=== PATIENT | female | born 1955 | race African-American/Black ===

== ENCOUNTER 2017-08-14 17:37 | Inpatient (IN) | payer OTHER ==
[~2017-08-14] VITALS: Ht 165.1 cm; Wt 105.8 kg
[~2017-08-14 17:37] MED LIST: ATEN1TAB74 PO; CALA120T PO; IBUP-232 PO; LEVA250T14 PO; OXYC-360 PO; PRIN20TA2 PO; STOO100C PO; SULF1TAB47 PO
[2017-08-14 17:40] VITALS: BP 143/75; PULSE 80; RESP 15; TEMP 98.3; O2SAT 96
--- NOTE | 2017-08-14 17:57 | PD ---
HPI Chief Complaint: Chest Pain Time Seen by Provider: 17:48 Travel History International Travel<30 days: No Contact w/Intl Traveler<30days: No Traveled to known affect area: No History of Present Illness HPI 62-year-old female with history of hypertension, borderline diabetes, presents to the ER today brought in by EMS for substernal chest pains which she states was a 9 out of 10, nausea, shortness of breath, radiating to her head. She was given aspirin and nitroglycerin by EMS and her chest pains has just about gone away. She denies any previous history of chest pains. Modifying Factors: None Associated Signs & Symptoms: Chest pain Risk Factors: Hypertension and diabetes PFSH Past Medical History Blood Disorders: No Cancer: No Endocrine: No Genitourinary: No Hypertension: Yes Immune Disorder: No Musculoskeletal: No Neurologic: No Psychiatric: No Reproductive: No Respiratory: No Past Surgical History Neurologic Surgery: Yes (CYST REMOVAL LOWER BACK) Other Surgery: Yes (CYST REMOVED FROM BACK) Social History Alcohol Use: No Tobacco Use: Yes (1 PACK PER WEEK) Substance Use: No Allergies-Medications (Allergen,Severity, Reaction): Coded Allergies: hydromorphone (Unverified Allergy, Severe, Itching, 08/14/17) penicillin G (Unverified Allergy, Severe, 08/14/17) Reported Meds & Prescriptions Reported Meds & Active Scripts Active Reported Valsartan 320 Mg Tab 320 Mg PO DAILY Hydrochlorothiazide 25 Mg Tab 25 Mg PO DAILY Review of Systems Except as stated in HPI: all other systems reviewed are Neg Physical Exam Narrative GENERAL: Well-developed elderly -C[place] female patient currently in mild distress. Awake and oriented 3. SKIN: Focused skin assessment warm/dry. HEAD: Atraumatic. Normocephalic. EYES: Pupils equal and round. No scleral icterus. No injection or drainage. ENT: No nasal bleeding or discharge. Mucous membranes pink and moist. NECK: Trachea midline. No JVD. CARDIOVASCULAR: Regular rate and rhythm. No murmur appreciated. Pulses are present and equal bilaterally. RESPIRATORY: No accessory muscle use. Clear to auscultation. Breath sounds equal bilaterally. GASTROINTESTINAL: Abdomen soft, non-tender, nondistended. Hepatic and splenic margins not palpable. MUSCULOSKELETAL: No obvious deformities. No clubbing. No cyanosis. No edema. NEUROLOGICAL: Awake and alert. No obvious cranial nerve deficits. Motor grossly within normal limits. Normal speech. PSYCHIATRIC: Appropriate mood and affect; insight and judgment normal. Data Data Last Documented VS Vital Signs Date Time Temp Pulse Resp B/P (MAP) Pulse Ox O2 Delivery O2 Flow Rate FiO2 08/14/17 18:51 143/75 (97) 08/14/17 18:51 99 Room Air 08/14/17 17:40 98.3 80 15 Orders Orders Electrocardiogram (08/14/17 17:48) Ckmb (Isoenzyme) Profile (08/14/17 17:48) Complete Blood Count With Diff (08/14/17:48) Comprehensive Metabolic Panel (08/14/17:48) Magnesium (Mg) (08/14/17:48) Prothrombin Time / Inr (Pt) (08/14/17:48) Act Partial Throm Time (Ptt) (08/14/17:48) Troponin I (08/14/17 17:48) Chest, Single Ap (08/14/17:48) Ecg Monitoring (08/14/17:48) Bilateral Bp Monitoring (08/14/17 17:48) Iv Access Insert/Monitor (08/14/17 17:48) Oximetry (08/14/17:48) Oxygen Administration (08/14/17:48) Nitroglycerin 2% Oint (Nitroglycerin 2% (08/14/17 18:00) Sodium Chloride 0.9% Flush (Ns Flush) (08/14/17 18:00) Labs Laboratory Tests Test 08/14/17 18:00 08/14/17 18:45 White Blood Count 11.2 TH/MM3 Red Blood Count 5.96 MIL/MM3 Hemoglobin 15.2 GM/DL Hematocrit 47.0 % Mean Corpuscular Volume 78.8 FL Mean Corpuscular Hemoglobin 25.5 PG Mean Corpuscular Hemoglobin Concent 32.4 % Red Cell Distribution Width 16.3 % Platelet Count 321 TH/MM3 Mean Platelet Volume 9.9 FL Neutrophils (%) (Auto) 66.8 % Lymphocytes (%) (Auto) 22.3 % Monocytes (%) (Auto) 6.8 % Eosinophils (%) (Auto) 2.9 % Basophils (%) (Auto) 1.2 % Neutrophils # (Auto) 7.5 TH/MM3 Lymphocytes # (Auto) 2.5 TH/MM3 Monocytes # (Auto) 0.8 TH/MM3 Eosinophils # (Auto) 0.3 TH/MM3 Basophils # (Auto) 0.1 TH/MM3 CBC Comment DIFF FINAL Differential Comment [facility] Medical Decision Making Medical Screen Exam Complete: Yes Emergency Medical Condition: Yes Medical Record Reviewed: Yes Interpretation(s) EKG shows nonspecific ST elevation in the inferior leads with T wave depressions in 1 and aVL. Laboratory Tests Test 08/14/17 18:00 08/14/17 18:45 White Blood Count 11.2 TH/MM3 (4.0-11.0) Red Blood Count 5.96 MIL/MM3 (4.00-5.30) Hematocrit 47.0 % (35.0-46.0) Mean Corpuscular Volume 78.8 FL (80.0-100.0) Mean Corpuscular Hemoglobin 25.5 PG (27.0-34.0) Differential Diagnosis Chest pains: ACS versus dysrhythmias versus COPD exacerbation versus pneumonia Narrative Course Chest pain resolved in the ER. She has nonspecific ST changes notable in inferior leads as well as some ST depressions which do not make STEMI criteria. However, she will need further cardiac evaluation with plans for admission. Cardiac workup was initiated in the ER. Physician Communication Physician Communication Case is signed out to Dr. Ayala at 7 PM awaiting workup and admission. Diagnosis Primary Impression: Chest pain Admitting Information Admitting Physician Requests: Admit Vishal Benson MD Aug 14, 2017 17:57
[2017-08-14] MEDS ORDERED: SODIUM CHLORIDE 0.9% FLUSH 10 ML FLUSH IVF PRN (18:00)
[2017-08-14] MEDS ORDERED: NITROGLYCERIN 2% OINT 1 GM PACKET TOP ONE (18:00)
[2017-08-14 18:15] LABS: AUTOMATED NEUTROPHIL # 7.5 TH/MM3 (1.8-7.7); BASOPHIL # 0.1 TH/MM3 (0-0.2); BASOPHIL % 1.2 % (0.0-2.0); EOSINOPHIL # 0.3 TH/MM3 (0-0.4); EOSINOPHIL % 2.9 % (0.0-4.0); HEMO FLAGS DIFF FINAL; LYMPH % 22.3 % (9.0-44.0); LYMPHOCYTE # 2.5 TH/MM3 (1.0-4.8); MEAN CELL VOLUME 78.8 FL (80.0-100.0); MEAN CORPUSCULAR HEMOGLOBIN 25.5 PG (27.0-34.0); MEAN CORPUSCULAR HGB CONC 32.4 % (32.0-36.0); MONO % 6.8 % (0.0-8.0); NEUT % 66.8 % (16.0-70.0); PLATELET COUNT 321 TH/MM3 (150-450); RED BLOOD COUNT 5.96 MIL/MM3 (4.00-5.30); RED CELL DISTRIBUTION WIDTH 16.3 % (11.6-17.2); WHITE BLOOD COUNT 11.2 TH/MM3 (4.0-11.0)
--- NOTE | 2017-08-14 18:18 | RADRPT ---
EXAM DATE/TIME: 08/14/2017 17:58 [facility] COMPARISON: No previous studies available for comparison. INDICATIONS : Chest pain. MEDICAL HISTORY : None. SURGICAL HISTORY : None. ENCOUNTER: Initial ACUITY: 1 day PAIN SCORE: 7/10 LOCATION: Bilateral chest FINDINGS: A single view of the chest demonstrates the lungs to be symmetrically aerated without evidence of mas s, infiltrate or effusion. The heart size is enlarged. There is a right central line in place. No pn eumothorax.. Osseous structures are intact. CONCLUSION: 1. No acute intrathoracic disease. 2. Compensated cardiomegaly. Israel Arshad MD on August 14, 2017 at 18:17 Board Certified Radiologist. This report was verified electronically.
[2017-08-14 18:50] VITALS: BP 142/80
[2017-08-14 18:51] VITALS: BP 143/75; O2SAT 99
[2017-08-14] MEDS ORDERED: VALS1TAB70 PO (18:53)
[2017-08-14] MEDS ORDERED: HYDR25TA5 PO (18:53)
[2017-08-14] MEDS ORDERED: HEPARIN SODIUM - IV 10,000 UNITS/10 ML VIAL IV PUSH ONE (19:30)
[2017-08-14] MEDS ORDERED: HEPARIN-D5W 25,000 U/250 ML 250 ML IV PRN (19:30)
[2017-08-14] MEDS ORDERED: MORPHINE SULFATE 2 MG/ML INJ IV PUSH ONE (19:45)
--- NOTE | 2017-08-14 19:48 | PD ---
Physical Exam Narrative Received sign out from previous team to follow up labs and admit. 62yo F with HTN and borderline DM presents to the ED with c/o chest pain since 3pm today. States it is intermittent and pressure like. Chest pain radiates to jaw and head. Pt did have findings on EKG that was suspicious for ischemia and previous team discussed with Dr. Heredia who recommended starting heparin and NPO after midnight. When I evaluated the patient, she said she was having chest pain so I reordered an EKG. Second EKG unchanged from first. Morphine 2mg IV ordered. She said she has not had morphine before and wants to try it. Chest pain improved after morphine. No adverse reaction. BP is elevated but pt is due for her HTN medications now so will give her her usual meds and recheck. Labs reviewed, glucose elevated at 235. Normal CO2. No increased anion gap. Troponin negative. Discussed with Dr. Hernandez and accepted to Dr. Zelaya's service under [facility]. Data Data Last Documented VS Vital Signs Date Time Temp Pulse Resp B/P (MAP) Pulse Ox O2 Delivery O2 Flow Rate FiO2 08/14/17 18:51 143/75 (97) 08/14/17 18:51 99 Room Air 08/14/17 17:40 98.3 80 15 Orders Orders Electrocardiogram (08/14/17 17:48) Ckmb (Isoenzyme) Profile (08/14/17 17:48) Complete Blood Count With Diff (08/14/17 17:48) Comprehensive Metabolic Panel (08/14/17 17:48) Magnesium (Mg) (08/14/17 17:48) Troponin I (08/14/17 17:48) Chest, Single Ap (08/14/17 17:48) Ecg Monitoring (08/14/17 17:48) Bilateral Bp Monitoring (08/14/17 17:48) Iv Access Insert/Monitor (08/14/17 17:48) Oximetry (08/14/17 17:48) Oxygen Administration (08/14/17 17:48) Nitroglycerin 2% Oint (Nitroglycerin 2% (08/14/17 18:00) Sodium Chloride 0.9% Flush (Ns Flush) (08/14/17 18:00) Resp Oxygen Nasal Cannula (08/14/17 ) Ckmb (Isoenzyme) Profile (08/14/17 19:26) Ckmb (Isoenzyme) Profile (08/14/17 22:26) Troponin I (08/14/17:) Troponin I (08/14/17:) Electrocardiogram (08/14/17) Electrocardiogram (08/14/17:) Metoprolol Tartrate (Lopressor) (08/14/17 19:30) Nitroglycerin 2% Oint (Nitroglycerin 2% (08/15/17 00:00) Aspirin (Aspirin) (08/15/17 09:00) Heparin Inj (Heparin Inj) (08/14/17 19:30) Heparin Inj (Heparin Inj) (08/15/17 01:30) Heparin Inj (Heparin Inj) (08/15/17 01:30) Heparin-D5w 25,000 U/250 Ml (Heparin-D5w (08/14/17 19:30) Act Partial Throm Time (Ptt) (08/14/17:) Cbc No Diff, Includes Plts (08/14/17:) Cbc No Diff, Includes Plts (08/17/17 06:00) Occult Blood (Hemoccult) Stool (08/14/17 19:26) Morphine Inj (Morphine Inj) (08/14/17 19:45) Prothrombin Time / Inr (Pt) (08/14/17 20:07) Hydrochlorothiazide (Hydrodiuril) (08/14/17 21:15) Valsartan (Diovan) (08/14/17 21:15) Admit Order (Ed Use Only) (08/14/17 22:28) Labs Laboratory Tests Test 08/14/17 18:00 08/14/17 20:07 08/14/17 20:20 08/14/17 20:53 White Blood Count 11.2 TH/MM3 12.6 TH/MM3 Red Blood Count 5.96 MIL/MM3 5.06 MIL/MM3 Hemoglobin 15.2 GM/DL 12.7 GM/DL Hematocrit 47.0 % 40.9 % Mean Corpuscular Volume 78.8 FL 80.9 FL Mean Corpuscular Hemoglobin 25.5 PG 25.2 PG Mean Corpuscular Hemoglobin Concent 32.4 % 31.1 % Red Cell Distribution Width 16.3 % 16.7 % Platelet Count 321 TH/MM3 284 TH/MM3 Mean Platelet Volume 9.9 FL 9.8 FL Neutrophils (%) (Auto) 66.8 % Lymphocytes (%) (Auto) 22.3 % Monocytes (%) (Auto) 6.8 % Eosinophils (%) (Auto) 2.9 % Basophils (%) (Auto) 1.2 % Neutrophils # (Auto) 7.5 TH/MM3 Lymphocytes # (Auto) 2.5 TH/MM3 Monocytes # (Auto) 0.8 TH/MM3 Eosinophils # (Auto) 0.3 TH/MM3 Basophils # (Auto) 0.1 TH/MM3 CBC Comment DIFF FINAL Differential Comment Prothrombin Time 10.7 SEC Prothromb Time International Ratio 1.0 RATIO Activated Partial Thromboplast Time 21.6 SEC Total Creatine Kinase 63 U/L 47 U/L Troponin I LESS THAN 0.02 NG/ML LESS THAN 0.02 NG/ML Blood Urea Nitrogen 7 MG/DL Creatinine 0.76 MG/DL Random Glucose 235 MG/DL Total Protein 8.1 GM/DL Albumin 3.9 GM/DL Calcium Level 9.4 MG/DL Magnesium Level 1.8 MG/DL Alkaline Phosphatase 109 U/L Aspartate Amino Transf (AST/SGOT) 10 U/L Alanine Aminotransferase (ALT/SGPT) 14 U/L Total Bilirubin 0.3 MG/DL Sodium Level 137 MEQ/L Potassium Level 3.7 MEQ/L Chloride Level 102 MEQ/L Carbon Dioxide Level 27.1 MEQ/L Anion Gap 8 MEQ/L Estimat Glomerular Filtration Rate 93 ML/MIN MDM Supervised Visit with WILLIAM: No Critical Care Narrative Aggregate critical care time was 40 minutes. Time to perform other separately billable procedures was not included in the critical care time. My time did not include minutes spent treating any other patients simultaneously or on activities that did not directly contribute to the patient's treatment. The services I provided to this patient were to treat and/or prevent clinically significant deterioration that could result in: cardiovascular collapse or . I provided critical care services requiring my management, as noted below: Chart data review, documentation time, medication orders and management, vital sign assessments/reviewing monitor data, ordering and reviewing lab tests, ordering and interpreting/reviewing x-rays and diagnostic studies, care of the patient and discussion of the patient with the admitting physicians. Diagnosis Primary Impression: NSTEMI (non-ST elevated myocardial infarction) Admitting Information Admitting Physician Requests: Admit Marj Ayala DO Aug 14, 2017 19:48
[2017-08-14] MEDS: METOPROLOL TARTRATE 25 MG TAB PO SCH (20:17)
[2017-08-14 20:46] LABS: APTT (PATIENT) 21.6 SEC (24.3-30.1)
[2017-08-14 20:59] LABS: CREATINE KINASE 63 U/L (26-192)
[2017-08-14 21:02] LABS: PROTHROMBIN TIME - PATIENT 10.7 SEC (9.8-11.6)
[2017-08-14] MEDS ORDERED: HYDROCHLOROTHIAZIDE 25 MG TAB PO ONE (21:15)
[2017-08-14] MEDS ORDERED: VALSARTAN 160 MG TAB PO ONE (21:15)
[2017-08-14 21:22] LABS: ANION GAP 8 MEQ/L (5-15); AST (GOT) 10 U/L (15-37); BICARBONATE 27.1 MEQ/L (21.0-32.0); BLOOD UREA NITROGEN 7 MG/DL (7-18); CHLORIDE 102 MEQ/L (98-107); GLOMERULAR FILTRATION RATE 93 ML/MIN (>89); MAGNESIUM 1.8 MG/DL (1.5-2.5); POTASSIUM 3.7 MEQ/L (3.5-5.1); SODIUM (NA) 137 MEQ/L (136-145)
[2017-08-14 21:23] LABS: ALT (GPT) 14 U/L (10-53)
[2017-08-14 21:26] LABS: ALKALINE PHOSPHATASE 109 U/L (45-117); TOTAL BILIRUBIN ADULT 0.3 MG/DL (0.2-1.0)
[2017-08-14 21:30] LABS: CREATINE KINASE 47 U/L (26-192)
[2017-08-14] MEDS ORDERED: SENNOSIDES 8.6 MG TAB PO PRN (23:45)
[2017-08-14] MEDS ORDERED: LACTULOSE SYRUP 20 GM/30 ML CUP PO PRN (23:45)
[2017-08-14] MEDS ORDERED: NALOXONE HCL 0.4 MG/ML AMP IV PUSH PRN (23:45)
[2017-08-14] MEDS ORDERED: MAGNESIUM HYDROXIDE SUSP 30 ML CUP PO PRN (23:45)
[2017-08-14] MEDS ORDERED: SODIUM CHLORIDE 0.9% FLUSH 10 ML FLUSH IV FLUSH PRN (23:45)
[2017-08-14] MEDS ORDERED: BISACODYL 10 MG SUPP RECTAL PRN (23:45)
[2017-08-15] VITALS (16 sets, daily range): BP systolic 115–169; BP diastolic 57–82; PULSE 51–73; RESP 16–20; TEMP 97.9–98.9; O2SAT 94–100
[2017-08-15] MEDS ORDERED: NITROGLYCERIN 2% OINT 1 GM PACKET TOP SCH
--- NOTE | 2017-08-15 00:48 | HHI.HP ---
HPI Service [facility] Hospitalists Primary Care Physician Rimma Barone MD Admission Diagnosis Chest pain Chief Complaint: chest pain today Travel History International Travel<30 Days: No Contact w/Intl Traveler <30 Da: No Traveled to Known Affected Are: No History of Present Illness 62yo F with HTN and borderline DM presents to the ED with c/o chest pain since 3pm today. States it is intermittent and pressure like. Chest pain radiates to jaw and head. Pt did have findings on EKG that was suspicious for ischemia and previous team ER discussed with Dr. Heredia who recommended starting heparin and NPO after midnight. Patient had Second EKG unchanged from first. Morphine 2mg IV was given and Chest pain improved after morphine. No adverse reaction. Labs reviewed, glucose elevated at 235. Normal CO2. No increased anion gap. Troponin negative Review of Systems Cardiovascular: COMPLAINS OF: Chest pain Past Family Social History Past Medical History hypertension Past Surgical History cyst removed Reported Medications Valsartan 320 Mg Tab 320 Mg PO DAILY Hydrochlorothiazide 25 Mg Tab 25 Mg PO DAILY Allergies: Coded Allergies: hydromorphone (Unverified Allergy, Severe, Itching, 08/14/17) penicillin G (Unverified Allergy, Severe, 08/14/17) Social History smokes about 1/2 ppd Physical Exam Vital Signs Vital Signs Date Time Temp Pulse Resp B/P (MAP) Pulse Ox O2 Delivery O2 Flow Rate FiO2 08/15/17 00:04 70 16 169/70 (103) 96 Room Air 08/14/17 18:51 143/75 (97) 08/14/17 18:51 99 Room Air 08/14/17 18:51 99 Room Air 08/14/17 18:50 142/80 (100) 08/14/17 17:40 98.3 80 15 143/75 (97) 96 Physical Exam GENERAL: This is a well-nourished, well-developed patient, in no apparent distress. SKIN: No rashes, ecchymoses or lesions. Cool and dry. HEAD: Atraumatic. Normocephalic. No temporal or scalp tenderness. EYES: Pupils equal round and reactive. Extraocular motions intact. No scleral icterus. No injection or drainage. ENT: Nose without bleeding, purulent drainage or septal hematoma. Throat without erythema, tonsillar hypertrophy or exudate. Uvula midline. Airway patent. NECK: Trachea midline. No JVD or lymphadenopathy. Supple, nontender, no meningeal signs. CARDIOVASCULAR: Regular rate and rhythm without murmurs, gallops, or rubs. RESPIRATORY: Clear to auscultation. Breath sounds equal bilaterally. No wheezes , rales, or rhonchi. GASTROINTESTINAL: Abdomen soft, non-tender, nondistended. No hepato-splenomegaly , or palpable masses. No guarding. MUSCULOSKELETAL: Extremities without clubbing, cyanosis, or edema. No joint tenderness, effusion, or edema noted. No calf tenderness. Negative Homans sign bilaterally. NEUROLOGICAL: Awake and alert. Cranial nerves II through XII intact. Motor and sensory grossly within normal limits. Five out of 5 muscle strength in all muscle groups. Normal speech. Laboratory Laboratory Tests Test 08/14/17 18:00 08/14/17 20:07 08/14/17 20:20 08/14/17 20:53 White Blood Count 11.2 Red Blood Count 5.96 Hemoglobin 15.2 Hematocrit 47.0 Mean Corpuscular Volume 78.8 Mean Corpuscular Hemoglobin 25.5 Mean Corpuscular Hemoglobin Concent 32.4 Red Cell Distribution Width 16.3 Platelet Count 321 Mean Platelet Volume 9.9 Neutrophils (%) (Auto) 66.8 Lymphocytes (%) (Auto) 22.3 Monocytes (%) (Auto) 6.8 Eosinophils (%) (Auto) 2.9 Basophils (%) (Auto) 1.2 Neutrophils # (Auto) 7.5 Lymphocytes # (Auto) 2.5 Monocytes # (Auto) 0.8 Eosinophils # (Auto) 0.3 Basophils # (Auto) 0.1 CBC Comment DIFF FINAL Differential Comment Prothrombin Time 10.7 Prothromb Time International Ratio 1.0 Activated Partial Thromboplast Time 21.6 Total Creatine Kinase 63 47 Troponin I LESS THAN 0.02 LESS THAN 0.02 Blood Urea Nitrogen 7 Creatinine 0.76 Random Glucose 235 Total Protein 8.1 Albumin 3.9 Calcium Level 9.4 Magnesium Level 1.8 Alkaline Phosphatase 109 Aspartate Amino Transf (AST/SGOT) 10 Alanine Aminotransferase (ALT/SGPT) 14 Total Bilirubin 0.3 Sodium Level 137 Potassium Level 3.7 Chloride Level 102 Carbon Dioxide Level 27.1 Anion Gap 8 Estimat Glomerular Filtration Rate 93 Test 08/15/17 00:00 Total Creatine Kinase 67 Troponin I 0.21 Result Diagram: 08/14/17 1800 08/14/172052 Imaging Last 24 hours Impressions Chest X-Ray 08/14/17 [id number] Signed Impressions: Service Date/Time: Monday, August 14, 2017 17:58 - CONCLUSION: 1. No acute intrathoracic disease. 2. Compensated cardiomegaly. Israel Arshad MD Course ekg normal sinus with st t wave depression new as compared to old ekg from 2008 started on heparin and admit as per cardiology Caprini VTE Risk Assessment Caprini VTE Risk Assessment: Mod/High Risk (score >= 2) Caprini Risk Assessment Model Point Value = 1 Point Value = 2 Point Value = 3 Point Value = 5 Age 41-60 Minor surgery BMI > 25 kg/m2 Swollen legs Varicose veins or History of unexplained or recurrent spontaneous Oral contraceptives or hormone replacement Sepsis (< 1 month) Serious lung disease, including pneumonia (< 1 month) Abnormal pulmonary function Acute myocardial infarction Congestive heart failure (< 1 month) History of inflammatory bowel disease Medical patient at bed rest Age 61-74 Arthroscopic surgery Major open surgery (> 45 min) Laparoscopic surgery (> 45 min) Malignancy Confined to bed (> 72 hours) Immobilizing plaster cast Central venous access Age >= 75 History of VTE Family history of VTE Factor V Leiden Prothrombin [id number] Lupus anticoagulant Anticardiolipin antibodies Elevated serum homocysteine Heparin-induced thrombocytopenia Other congenital or acquired thrombophilia Stroke (< 1 month) Elective arthroplasty Hip, pelvis, or leg fracture Acute spinal cord injury (< 1 month) Prophylaxis Regimen Total Risk Factor Score Risk Level Prophylaxis Regimen 0-1 Low Early ambulation 2 Moderate Order ONE of the following: *Sequential Compression Device (SCD) *Heparin 5000 units SQ BID 3-4 Higher Order ONE of the following medications: *Heparin 5000 units SQ TID *Enoxaparin/Lovenox 40 mg SQ daily (WT < 150 kg, CrCl > 30 mL/min) *Enoxaparin/Lovenox 30 mg SQ daily (WT < 150 kg, CrCl > 10-29 mL/min) *Enoxaparin/Lovenox 30 mg SQ BID (WT < 150 kg, CrCl > 30 mL/min) AND/OR *Sequential Compression Device (SCD) 5 or more Highest Order ONE of the following medications: *Heparin 5000 units SQ TID (Preferred with Epidurals) *Enoxaparin/Lovenox 40 mg SQ daily (WT < 150 kg, CrCl > 30 mL/min) *Enoxaparin/Lovenox 30 mg SQ daily (WT < 150 kg, CrCl > 10-29 mL/min) *Enoxaparin/Lovenox 30 mg SQ BID (WT < 150 kg, CrCl > 30 mL/min) AND *Sequential Compression Device (SCD) Assessment and Plan Problem List: (1) Chest pain ICD Codes: R07.9 - Chest pain, unspecified Status: Acute Plan: ekg changes plan as per cardiology heparin drip ntg (2) Hypertension ICD Codes: I10 - Essential (primary) hypertension Plan: continue home BP meds Assessment and Plan further plan as case develops Code Status full Discussed Condition With patient Physician Certification 2 Midnight Certification Type: Admission for Inpatient Services Order for Inpatient Services The services are ordered in accordance with Medicare regulations or non- Medicare payer requirements, as applicable. In the case of services not specified as inpatient-only, they are appropriately provided as inpatient services in accordance with the 2-midnight benchmark. Estimated LOS (days): 3 3 days is the estimated time the patient will need to remain in the hospital, assuming treatment plan goals are met and no additional complications. Post-Hospital Plan: Not yet determined Problem Qualifiers (1) Chest pain: Qualified Codes: R07.9 - Chest pain, unspecified Louis Khan MD Aug 15, 2017 00:48
[2017-08-15] MEDS ORDERED: HEPARIN SODIUM - IV 10,000 UNITS/10 ML VIAL IV PUSH PRN ×2 (01:30)
[2017-08-15] MEDS ORDERED: ONDANSETRON HCL 4 MG/2 ML VIAL ONE (02:14)
[2017-08-15 04:14] LABS: INTERNATIONAL NORMALIZED RATIO 1.1 RATIO; PROTHROMBIN TIME - PATIENT 11.8 SEC (9.8-11.6)
[2017-08-15 04:36] LABS: HEMATOCRIT 40.9 % (35.0-46.0); MEAN CELL VOLUME 80.9 FL (80.0-100.0); MEAN CORPUSCULAR HEMOGLOBIN 25.2 PG (27.0-34.0); MEAN CORPUSCULAR HGB CONC 31.1 % (32.0-36.0); PLATELET COUNT 284 TH/MM3 (150-450); RED BLOOD COUNT 5.06 MIL/MM3 (4.00-5.30); RED CELL DISTRIBUTION WIDTH 16.7 % (11.6-17.2); REVIEW FLAG FINAL; WHITE BLOOD COUNT 12.6 TH/MM3 (4.0-11.0)
[2017-08-15] MEDS: SODIUM CHLORIDE 0.9% FLUSH 10 ML FLUSH IV FLUSH SCH ×2 (08:59→21:14)
[2017-08-15] MEDS: METOPROLOL TARTRATE 25 MG TAB PO SCH ×2 (08:59→21:14)
[2017-08-15] MEDS: DOCUSATE SODIUM 50 MG/SENNA 8.6 MG TAB PO SCH ×2 (08:59→21:00)
[2017-08-15] MEDS ORDERED: HYDROCHLOROTHIAZIDE 25 MG TAB PO SCH (09:00)
[2017-08-15] MEDS ORDERED: VALSARTAN 160 MG TAB PO SCH (09:00)
[2017-08-15] MEDS ORDERED: ASPIRIN 325 MG TAB PO SCH (09:00)
[2017-08-15] MEDS ORDERED: HEPARIN-NS/PF INJ 500 ML ONE (10:02)
[2017-08-15] MEDS ORDERED: VERAPAMIL HCL 5 MG/2 ML VIAL ONE (10:03)
[2017-08-15] MEDS ORDERED: NITROGLYCERIN INJ 5 ML ONE (10:03)
[2017-08-15] MEDS ORDERED: HEPARIN SODIUM - IV 10,000 UNITS/10 ML VIAL ONE (10:03)
[2017-08-15] MEDS ORDERED: MIDAZOLAM HCL 2 MG/2 ML VIAL ONE ×3 (10:03→10:57)
--- NOTE | 2017-08-15 10:11 | MB ---
cc: RAFITA RUTHERFORD DATE OF CONSULTATION 08/15/2017 INDICATION [id number] MO. HISTORY OF PRESENT ILLNESS A 62-year-old female with hypertension, diabetes, no prior history of known heart disease, presented yesterday to the emergency department with substernal chest pain radiating towards the jaw. She states that she was in her usual state of health, developed a pressure-like sensation. She went into the emergency department. There they started a heparin drip, gave her nitroglycerin and symptoms resolved. She had electrocardiogram with some ischemic changes. Her initial troponin was negative but she ruled in by cardiac biomarkers for a [id number] MO. We were consulted for further recommendations. PAST MEDICAL HISTORY Hypertension. MEDICATIONS 1. Valsartan. 2. Hydrochlorothiazide. ALLERGIES HYDROMORPHONE. PENICILLIN. SOCIAL HISTORY Smokes 1/2-pack a day. Denies any drug or alcohol use. REVIEW OF SYSTEMS A 12-point review of systems was performed. Negative unless otherwise noted in the History of Present Illness. PHYSICAL EXAMINATION VITAL SIGNS: Temperature is 97, pulse is 69, blood pressure is 152/81 mmHg. GENERAL: Alert, oriented x3, in no acute distress. HEENT: Exam shows pupils reactive to light and accommodation. Extraocular movements intact. NECK: No elevation in jugular venous distension. No thyromegaly. No lymphadenopathy. No carotid bruits. LUNGS: Clear to auscultation bilaterally. CARDIOVASCULAR EXAM: Regular rate and rhythm without murmurs, rubs or gallops. ABDOMEN: Non-tender, non-distended. Good bowel sounds. No hepatosplenomegaly. EXTREMITIES: No clubbing, cyanosis, and edema. Good peripheral pulses. NEUROLOGIC: Cranial nerves intact. Motor and sensory grossly intact. LABORATORY DATA WBC 12.6, hemoglobin is 12.7, platelet count is 284. INR is 1.1. Sodium 137, potassium 3.7. Troponin 0.02, 0.02, 0.21. ELECTROCARDIOGRAM Sinus rhythm. Pronounced T-wave inversions through the anterolateral leads consistent with ischemic etiology. ASSESSMENT 1. [id number] MO. 2. Hypertension. 3. Diabetes. PLAN The patient has suggestive symptoms in addition to electrocardiographic changes and elevated troponin. All point towards acute coronary syndrome. We will hold heparin drip. Discussed risks, benefits and alternatives with the patient. We will plan to on proceed with cardiac catheterization. We will obtain a 2-D echocardiogram. Gentle hydration. MD YVES Schaefer/SEGUN /9:49 AM /10:03 AM
[2017-08-15] MEDS ORDERED: IOHEXOL 350 MG/ML 100 ML BTL (for Cath Lab) OTHER ONE (10:40)
[2017-08-15] MEDS ORDERED: STERILE WATER FOR INJECTION 10 ML VIAL ONE (10:49)
[2017-08-15] MEDS ORDERED: BIVALIRUDIN 250 MG VIAL ONE (10:49)
[2017-08-15] MEDS ORDERED: ADENOSINE IV SOLN 3 MG/ML 2 ML VIAL ONE (11:22)
[2017-08-15] MEDS ORDERED: CLOPIDOGREL 300 MG TAB ONE (11:34)
[2017-08-15] MEDS ORDERED: SODIUM CHLOR 0.9% 1000 ML INJ 1,000 ML IV SCH (11:37)
[2017-08-15] MEDS ORDERED: MISC INFORMATION XX ONE (11:45)
[2017-08-15] MEDS ORDERED: LIDOCAINE 2% JELLY 30 ML TUBE TOP PRN (11:45)
[2017-08-15] MEDS ORDERED: BACITRACIN OINT 0.9 GM PKT TOP ONE (11:45)
--- NOTE | 2017-08-15 11:59 | CATHPROC ---
[employer] HIS Report Study Information Study Number Admission Scheduled Start Study Start [id number] Aug 14 2017 10:30PM 08/15/2017 Aug 15 2017 10:10AM [place] [facility] Cardiac Catheterization Admit Source Facility Department Emergency department [facility] - [employer] Physician and Clinical Staff Initial Ancelmo Haji [employer] Project Manager Brandon Estrada RN [employer] Project Manager Nicky Deal RN [employer] Project Manager Antonio MARINELLI, Gallo Recorder [place],(R) Scrub Dariel Neff RCIS(BS) Procedures Performed Procedure Location (Site) Vessel Name Coronary Angiograms LCA Left Coronary Coronary Angiograms RCA Right Coronary Drug Eluting Inflatio RCA Mid Right Coronary L Heart Cath Pacemaker Temp RV Ventricle PTCA RCA Mid Right Coronary Wire insertion Radial (right) Radial Art. Equipment Time Cell Maker Description Size Mfg Part Number Used/Scraped [id number] 10:58 [employer]IMMER[employer] PACING CATHETER STRAIGHT TIP FR 5 Used *[id number] TRANSDUCER, TRUWAVE [id number] 10:24 [employer] ZIMMERMAN * Used W/STOCKCOCK *[id number] 11:29 [employer]ENT, SYNERGY 2.5 X 16MM Used *[id number] 11:18 [employer] STENT, SYNERGY 2.5 X 38MM Used *[id number] *[id number] *[id number] *[id number] 10:24 [employer] PACK, CCL CUSTOM * Used *[id number] 10:24 [employer] SUPPORT, ARTERIAL ADULT 08708 *[id number] Used [id number] 10:24 [employer] PACER PEN, SKIN DUAL W/ RULER * Used *[id number] 11:12 [employer] BALLOON, 2.5 X 15MM EUPHORA 15MM Used *[id number] 11:13 [facility] 30 BLOSSOM INDEFLATOR Used *[id number] BAND, RADIAL COMPRESSION TR [id number] 11:43 [employer] 24CM Used SHORT 24 *[id number] SHEATH, FR6 RADIAL PRELUDE 10:24 [facility] FR 6 [id number] Used EASE 11CM [id number] 11:01 [facility] SHEATH, FR6.5 PRELUDE 11CM FR 6.5 038ACT Used *[id number] 10:24 [employer] WIRE, EXCHANGE 260CM 3MMJ 260CM Used *[id number] 10:24 [employer] OMNIPAQUE, 350 MG, 150ML 150ML [id number] Used CATHETER, FR4 SPIROFLEX [id number] 10:56 [employer] FR 4 Used ANGIOJET RX *[id number] 10:24 [employer] BL[employer],WARM AIR CCL * Used *[id number] WIRE, RUNTHROUGH NS FLOPPY [id number] 10:53 [employer] 180CM Used .014 180CM *[id number] Equipment Model, Serial, Lot Number and Expiration Data Description Model Number Serial Number Lot Number Expiration Date BAND, RADIAL COMPRESSION TR [id number] 05-03-2020 SHORT 24 STENT, [employer] [id number] 05-01-2018 STENT, [employer] [id number] 01-30-2018 History: Current Medications Medication Dosage/Unit Route Frequency Last Date/Time Taken ASA History: Allergies Allergy Reaction hydromorphone Itching penicillin G History: Risk Factors Family History of Hypertension Dyslipidemia Previous IL Previous Heart Failure Premature CAD Yes Yes No No No Prior Valve Prior PCI Prior CABG Surgery No No No Cerebrovascular Peripheral Artery Chronic Lung On Dialysis Diabetes Disease Disease Disease No No No No No History: Risk Factors Selection Items Current Smoker History: Stress Tests Stress or Imaging Studies Performed No History: Other Disease Selection Items HTN History: Other Current Smoker Method Packs a Day Years Used Pack Years Yes Cigarettes 1 5 5 Labs Hgb (g/dl) Hct (%) RBC (MIL/MM3) WBC (l/cumm) Platelets (thousands) 11.60-17.00 35.00-51.00 4.00-5.90 4.00-11.00 150.00-450.00 12.7 40.9 5 12.6 284 Glucose (mg/dl) BUN (mg/dl) Creatinine (mg/dl) BUN:Creatinine (1:x) 74.00-106.00 7.00-18.00 0.50-1.30 10.00-20.00 253 7 0.7 10 Na (meq/l) K (meq/l) Cl (meq/l) CO2 (mmol/L) Ca (mg/dl) 136.00-145.00 3.50-5.10 98.00-107.00 21.00-32.00 8.50-10.10 137 3.7 102 27.1 9.4 PT (sec) PTT (sec) INR (PTT:PT) 9.80-11.60 24.30-30.10 0.90-1.10 10.7 21.6 1 Troponin I (ng/ml) Troponin T (ng/ml) CPK (u/l) CPK-MB (ng/ML) 0.02-0.05 0.40-2.10 26.00-308.00 0.50-3.60 0.02 0.21 67 Not Drawn Medication Medication Total Dose (Bolus/Oral) Medication Total Dosage/Unit 1% XYLOCAINE 25 mL ADENOSINE 36 mcg ANGIOMAX BOLUS 32 mL FENTANYL 125 mcg HEPARIN 3000 units MORPHINE 2 mg NITROGLYCERIN S/L 0.4 mg NTG (IC) 600 mcg PEPCID 20 mg PLAVIX 600 mg VERSED 5 mg Medications (Bolus/Oral) Medication Time Given Dosage/Unit Administered By Reason 08/15/2017 10:39:16 VERSED 2 mg Nicky Deal AM 2 mg VERSED given in lab by Nicky Deal RN in Left Forearm via Peripheral IV. 08/15/2017 10:39:28 FENTANYL 50 mcg Nicky Deal AM 50 mcg FENTANYL given in lab by Nicky Deal RN in Left Forearm via Peripheral IV. 08/15/2017 10:42:03 1% XYLOCAINE 5 mL Ancelmo Larios AM 5 mL 1% XYLOCAINE given in lab by Ancelmo Larios in Right Radial via Subcutaneous. 08/15/2017 10:43:34 VERSED 1 mg Nicky Deal AM 1 mg VERSED given in lab by Nicky Deal RN in Left Forearm via Peripheral IV. 08/15/2017 10:43:44 FENTANYL 25 mcg Nicky Deal AM 25 mcg FENTANYL given in lab by Nicky Deal RN in Left Forearm via Peripheral IV. 08/15/2017 10:45:11 NTG (IC) 200 mcg Ancelmo Larios AM 200 mcg NTG (IC) given in lab by Ancelmo Larios in Right Radial via Intra-arterial. 08/15/2017 10:45:54 HEPARIN 3000 units Nicky Deal AM 3000 units HEPARIN given in lab by Nicky Deal RN in Left Forearm via Peripheral IV. 08/15/2017 10:47:15 VERSED 1 mg Nicky Deal AM 1 mg VERSED given in lab by Nicky Deal RN in Left Forearm via Peripheral IV. 08/15/2017 10:47:19 FENTANYL 25 mcg Nicky Deal AM 25 mcg FENTANYL given in lab by Nicky Deal RN in Left Forearm via Peripheral IV. 08/15/2017 10:56:30 ANGIOMAX BOLUS 32 mL Nicky Deal AM 32 mL ANGIOMAX BOLUS given in lab by Nicky Deal RN in Left Antecubital via Peripheral IV. 08/15/2017 10:57:01 1% XYLOCAINE 20 mL Ancelmo Larios AM 20 mL 1% XYLOCAINE given in lab by Ancelmo Larios in Right Groin via Subcutaneous. 08/15/2017 10:58:14 VERSED 1 mg Nicky Deal AM 1 mg VERSED given in lab by Nicky Deal RN in Left Forearm via Peripheral IV. 08/15/2017 10:58:19 FENTANYL 25 mcg Nicky Deal AM 25 mcg FENTANYL given in lab by Nicky Deal RN in Left Forearm via Peripheral IV. 08/15/2017 11:14:51 NTG (IC) 200 mcg Ancelmo Larios AM 200 mcg NTG (IC) given in lab by Ancelmo Larios via Intra-coronary. 08/15/2017 11:26:16 ADENOSINE 18 mcg Ancelmo Larios AM 18 mcg ADENOSINE given in lab by Ancelmo Larios via Intra-coronary. 08/15/2017 11:31:24 ADENOSINE 18 mcg Ancelmo Larios AM 18 mcg ADENOSINE given in lab by Ancelmo Larios via Intra-coronary. 08/15/2017 11:31:32 NTG (IC) 200 mcg Ancelmo Larios AM 200 mcg NTG (IC) given in lab by Aneclmo Larios via Intra-coronary. 08/15/2017 11:45:40 PLAVIX 600 mg Ancelmo Larios AM 600 mg PLAVIX given in lab by Ancelmo Larios via Oral. 08/15/2017 12:09:10 NITROGLYCERIN S/L 0.4 mg Antonio MARINELLI, Gallo PM 0.4 mg NITROGLYCERIN S/L given in lab by Gallo Alvarez RN via Sublingual. 08/15/2017 12:16:11 PEPCID 20 mg Antonio MARINELLI, Gallo PM 20 mg PEPCID given in lab by Gallo Alvarez RN in Left Antecubital via Peripheral IV. 08/15/2017 12:17:20 MORPHINE 2 mg Nicky Deal PM 2 mg MORPHINE given in lab by Nicky Deal RN in Left Antecubital via Peripheral IV. Medication (Drip) Medication Time Given Dosage/Unit Concentration/Unit Diluent (ml) Soluti on 08/15/2017 10:59:06 ANGIOMAX DRIP 1.75 mg/kg/hr 250 mg 50 NaCl .9 AM 1.75 mg/kg/hr ANGIOMAX DRIP given in lab by Nicky Deal RN in Left Forearm via Peripheral IV. Pu mp/Drip Flow = 37.1 ml/hr using NaCl .9 with a concentration of 250 mg in 50 ml. 08/15/2017 10:15:09 IV Solutions 0 mL (IV) 500 NaCl .9 AM IV Solutions given in lab by Brandon Estrada RN in Left Forearm via Peripheral IV. Pump/Drip Flow = 2 0 ml/hr using NaCl .9. Initial Case Assessment Cardiovascular HR Rhythm NIBP Chest Pain 62 Sinus 160/83 0 Edema Present Skin color Skin None Normal Warm Dry Circulatory - Right Pulses Dorsalis Pedis Femoral Radial 2 2 2 Scale (0,1,2,3,4,d) Scale (0,1,2,3,4,d) Neurological State Oriented to time-place- Alert Moves all extremities person Respiration - General Respiration Rate SpO2 (%) O2 (lpm) (B/min) 14 96 2 Final Case Assessment Cardiovascular HR Rhythm NIBP Chest Pain 59 Sinus 123/66 0 Edema Present Skin color Skin None Normal Warm Dry Circulatory - Right Pulses Dorsalis Pedis Femoral Radial 2 2 2 Scale (0,1,2,3,4,d) Scale (0,1,2,3,4,d) Neurological State Oriented to time-place- Alert Moves all extremities person Respiration - General Respiration Rate SpO2 (%) O2 (lpm) (B/min) 13 97 2 Chronological Log Time Study Chronological Log 10:10:03 Patient arrived via Bed. 10:10:04 Patient Name, D.O.B, / Armband Verified By R.N. 10:10:04 Consent signed by the physician and the patient and verified by the [employer] staff. 10:10:05 Pre-op and post- op instructions given; patient acknowledges understanding of instructions. 10:10:05 Verbal Stimulation=2 Physical Stimulation=2 Airway=2 Respiration=2 TOTAL=8. (0=absent, 1=li mited, 2=present) 10:14:09 Presedation assessment performed by [employer] RN. 10:14:11 Allens test performed on the right radial and ulnar artery. 10:14:15 Patient has been NPO for More than 6Hrs. 10:14:21 Skin Breakdown- none per patient. 10:14:34 Patient Warmer Placed on the Table. 10:14:36 Alban Prominences Protected 10:14:38 A # 20 IV was noted in the Forearm (left). Grade = 0 10:14:59 A # 20 IV was noted in the Wrist (right). Grade = 0 IV Solutions given in lab by Brandon Estrada, ISIS in Left Forearm via Peripheral IV. Pump/Drip Fl ow = 20 ml/hr using NaCl 10:15:09 .9. 10:15:44 History and physical on the chart or being dictated. Assessment: Initial Case, HR=62 BPM, Rhythm=Sinus, BFAG=251/83 mmhg, Chest Pain=0, Edema=None, Color=Normal, Skin = Warm, Dry 10:15:45 Right Pulses: Ra Ped=2, Femoral=2, Radial=2 Neurological: State=Alert, Ox3, FAJARDO Respiration: Resp=14 B/min, SpO2=96 %, O2=2 lpm Vitals capture started with the following parameters, Patient=Adult, Interval=3 min, Initial Pr iqqvob=331 mmHg, 10:15:53 Deflation Rate=5 mmHg, Cuff placed on Left Ankle 10:16:32 HR=61 bpm, LNFX=194/83 mmhg, SpO2=96.0 %, Resp=14 B/min, Pain=0, Gary=10, Guzman=2 10:19:38 HR=59 bpm, UFLZ=750/80 mmhg, SpO2=97.0 %, Resp=13 B/min, Pain=0, Gary=10, Guzman=2 10:22:34 HR=62 bpm, YNLR=905/79 mmhg, SpO2=96.0 %, Resp=10 B/min, Pain=0, Gary=10, Guzman=2 10:23:50 Right Radial and groin(s) prepped with 2% chlorhexidine, and draped after a 3 min. waiting time. 10:25:37 HR=55 bpm, FKIV=576/80 mmhg, SpO2=97.0 %, Resp=14 B/min, Pain=0, Gary=10, Guzman=2 10:29:18 HR=54 bpm, MJEL=717/74 mmhg, SpO2=98.0 %, Resp=16 B/min, Pain=0, Gary=10, Guzman=2 10:30:30 MD paged 10:31:35 HR=52 bpm, HPLN=806/70 mmhg, SpO2=94.0 %, Resp=15 B/min, Pain=0, Gary=10, Guzman=2 10:35:06 HR=56 bpm, RYWY=049/75 mmhg, SpO2=96.0 %, Resp=15 B/min, Pain=0, Gary=10, Guzman=2 10:37:28 MD arrived. 10:37:33 HR=58 bpm, OTCZ=661/74 mmhg, SpO2=97.0 %, Resp=15 B/min, Pain=0, Gary=10, Guzman=2 10:38:15 Pressure channel 1 zero failed. 10:38:26 Reference ECG taken 10:38:30 Pressure channel 1 zeroed. 10:39:16 2 mg VERSED given in lab by Nicky Deal RN in Left Forearm via Peripheral IV. 10:39:28 50 mcg FENTANYL given in lab by Nicky Deal RN in Left Forearm via Peripheral IV. 10:40:34 HR=72 bpm, EXRI=818/68 mmhg, SpO2=99.0 %, Resp=19 B/min, Pain=0, Gary=10, Guzman=2 Time Out. Correct patient, correct procedure, correct physician, power injector loaded, or not loaded with contrast with 10:41:03 surgical team present. Time Out Concurred by MD and individual staff in procedure. 10:41:14 Case Start 10:42:03 5 mL 1% XYLOCAINE given in lab by Ancelmo Larios in Right Radial via Subcutaneous. 10:43:32 HR=69 bpm, RXOM=242/77 mmhg, SpO2=94.0 %, Resp=15 B/min, Pain=0, Gary=10, Guzman=2 10:43:34 1 mg VERSED given in lab by Nicky Deal RN in Left Forearm via Peripheral IV. 10:43:44 25 mcg FENTANYL given in lab by Nicky Deal RN in Left Forearm via Peripheral IV. 10:44:33 Access site was Radial Artery. A SHEATH, FR6 RADIAL PRELUDE EASE 11CM FR 6 was advanced into the Radial (right) using the Perc utaneous 10:44:46 technique. 10:45:11 200 mcg NTG (IC) given in lab by Ancelmo Larios in Right Radial via Intra-arterial. A JR 5.0 INFINITI CATHETER FR 6 was advanced over a wire. OMNIPAQUE, 350 MG, 150ML 150ML was us ed for :45:34 injections. 10:45:54 3000 units HEPARIN given in lab by Nicky Deal RN in Left Forearm via Peripheral IV. 10:46:34 HR=75 bpm, FEPV=226/68 mmhg, SpO2=92.0 %, Resp=15 B/min, Pain=0, Gary=10, Guzman=2 Recorded Pressure: LV, HR=76, Condition=Condition 1 10:46:35 (Left Ventricle) LV 117/7/15 Recorded Pressure: LV, Ao, HR=75, Condition=Condition 1 10:46:38 (Left Ventricle) LV 121/12/19, (Aorta) Ao 117/64/87 10:47:15 1 mg VERSED given in lab by Nicky Deal RN in Left Forearm via Peripheral IV. 10:47:19 25 mcg FENTANYL given in lab by Nicky Dael RN in Left Forearm via Peripheral IV. 10:47:23 The RCA was injected and visualized at various angles. OMNIPAQUE, 350 MG, 150ML 150ML used . After removing the current catheter a JL 3.5 INFINITI CATHETER FR 6 was advanced over a WIRE, E XCHANGE 260CM 10:48:26 3MMJ 260CM. 10:49:32 HR=77 bpm, WYUR=883/65 mmhg, SpO2=91.0 %, Resp=13 B/min, Pain=0, Gary=10, Guzman=2 Recorded Pressure: Ao, HR=86, Condition=Condition 1 10:49:55 (Aorta) Ao 115/67/88 10:50:05 The LCA was injected and visualized at various angles. OMNIPAQUE, 350 MG, 150ML 150ML used . 10:52:33 HR=88 bpm, LWEP=825/74 mmhg, SpO2=92.0 %, Resp=13 B/min, Pain=0, Gary=10, Guzman=2 After removing the current catheter a JR 5.0 GUIDE CATHETER FR 6 was advanced over a WIRE, EXCH PADMINI 260CM 10:53:15 3MMJ 260CM. 10:55:17 Wire removed 10:55:18 A WIRE, RUNTHROUGH NS FLOPPY .014 180CM 180CM was inserted via Radial (right). 10:55:35 HR=87 bpm, UKNI=732/76 mmhg, SpO2=92.0 %, Resp=14 B/min, Pain=0, Gary=10, Guzman=2 10:56:26 Interventional wire has crossed the lesion 10:56:30 32 mL ANGIOMAX BOLUS given in lab by Nicky Deal RN in Left Antecubital via Peripheral IV. 10:57:01 20 mL 1% XYLOCAINE given in lab by Ancelmo Larios in Right Groin via Subcutaneous. 10:58:14 1 mg VERSED given in lab by Nicky Deal RN in Left Forearm via Peripheral IV. 10:58:19 25 mcg FENTANYL given in lab by Nicky Deal RN in Left Forearm via Peripheral IV. 10:58:35 HR=77 bpm, SKHF=089/78 mmhg, SpO2=93.0 %, Resp=18 B/min, Pain=0, Gary=10, Guzman=2 1.75 mg/kg/hr ANGIOMAX DRIP given in lab by Nicky Deal RN in Left Forearm via Peripheral IV. Pump/Drip Flow 10:59:06 = 37.1 ml/hr using NaCl .9 with a concentration of 250 mg in 50 ml. 10:59:48 Access site was Right Femoral Vein. 11:00:05 A SHEATH, FR6.5 PRELUDE 11CM FR 6.5 was advanced into the Fem Vein (right) using the Percut aneous technique. 11:01:35 HR=82 bpm, LAKK=205/88 mmhg, SpO2=87.0 %, Resp=14 B/min, Pain=0, Gary=10, Guzman=2 A PACING CATHETER STRAIGHT TIP FR 5 was advanced to the right ventricle. Rate = 40, Output = ~O UTPUT~, MA = 11:01:39 5. 11:04:36 HR=88 bpm, MZNZ=000/83 mmhg, SpO2=93.0 %, Resp=12 B/min, Pain=0, Gary=10, Guzman=2 A CATHETER, FR4 SPIROFLEX ANGIOJET RX FR 4 was advanced over a wire. OMNIPAQUE, 350 MG, 150ML 1 50ML was 11:06:09 used for injections. 11:07:18 Aspiration in progress with angiojet. 11:08:13 HR=65 bpm, SWML=901/66 mmhg, SpO2=93.0 %, Resp=12 B/min, Pain=0, Gary=10, Guzman=2 11:08:50 Catheter was removed 11:10:40 HR=79 bpm, ARQG=347/77 mmhg, SpO2=92.0 %, Resp=12 B/min, Pain=0, Gary=10, Guzman=2 A BALLOON, 2.5 X 15MM EUPHORA 15MM was inserted over WIRE, RUNTHROUGH NS FLOPPY .014 180CM 180C M via 11:11:48 the RCA Mid. A BALLOON, 2.5 X 15MM EUPHORA 15MM over a WIRE, RUNTHROUGH NS FLOPPY .014 180CM 180CM in the RC A Mid 11:12:19 was inflated using a 30 BLOSSOM INDEFLATOR at 8 blossom for 20 sec. A BALLOON, 2.5 X 15MM EUPHORA 15MM over a WIRE, RUNTHROUGH NS FLOPPY .014 180CM 180CM in the RC A Mid 11:12:34 was inflated using a 30 BLOSSOM INDEFLATOR at 9 blossom for 10 sec. A BALLOON, 2.5 X 15MM EUPHORA 15MM over a WIRE, RUNTHROUGH NS FLOPPY .014 180CM 180CM in the RC A Mid 11:12:46 was inflated using a 30 BLOSSOM INDEFLATOR at 9 blossom for 10 sec. 11:13:25 The RCA was injected and visualized at various angles. OMNIPAQUE, 350 MG, 150ML 150ML used . 11:13:36 HR=74 bpm, UEHV=001/80 mmhg, SpO2=93.0 %, Resp=14 B/min, Pain=0, Gary=10, Guzman=2 11:13:46 Vitals capture stopped. 11:14:15 Balloon Removed. 11:14:51 200 mcg NTG (IC) given in lab by Ancelmo Larios via Intra-coronary. 11:15:39 The RCA was injected and visualized at various angles. OMNIPAQUE, 350 MG, 150ML 150ML used . Vitals capture started with the following parameters, Patient=Adult, Interval=5 min, Initial Pr bybetm=490 mmHg, 11:16:44 Deflation Rate=5 mmHg, Cuff placed on Left Arm 11:17:26 HR=64 bpm, QQZC=233/68 mmhg, SpO2=95.0 %, Resp=15 B/min, Pain=0, Gary=10, Guzman=2 A STENT, SYNERGY 2.5 X 38MM was advanced through a JR 5.0 GUIDE CATHETER FR 6 over a WIRE, RUNT HROUGH 11:19:12 NS FLOPPY .014 180CM 180CM. A STENT, SYNERGY 2.5 X 38MM was deployed using a 30 BLOSSOM INDEFLATOR at 16 atmospheres for 25 sec onds in the 11:20:39 RCA Mid. 11:21:45 Re-inflated the stent balloon in the RCA Mid to 8 BLOSSOM for 20 seconds. 11:22:18 Re-inflated the stent balloon in the RCA Mid to 10 BLOSSOM for 10 seconds. 11:22:19 HR=65 bpm, FPZP=805/70 mmhg, Resp=15 B/min, Pain=0, Gary=10, Guzman=2 11:22:28 Delivery device removed 11:24:00 The RCA was injected and visualized at various angles. OMNIPAQUE, 350 MG, 150ML 150ML used . 11:26:16 18 mcg ADENOSINE given in lab by Ancelmo Larios via Intra-coronary. 11:27:18 HR=63 bpm, IZBF=356/77 mmhg, SpO2=92.0 %, Resp=15 B/min, Pain=0, Gary=10, Guzman=2 A STENT, SYNERGY 2.5 X 16MM was advanced through a JR 5.0 GUIDE CATHETER FR 6 over a WIRE, RUNT HROUGH 11:29:44 NS FLOPPY .014 180CM 180CM. A STENT, SYNERGY 2.5 X 16MM was deployed using a 30 BLOSSOM INDEFLATOR at 14 atmospheres for 10 sec onds in the 11:30:18 RCA Mid. 11:31:24 18 mcg ADENOSINE given in lab by Ancelmo Larios via Intra-coronary. 11:31:32 200 mcg NTG (IC) given in lab by Ancelmo Larios via Intra-coronary. 11:32:08 The RCA was injected and visualized at various angles. OMNIPAQUE, 350 MG, 150ML 150ML used . 11:32:23 HR=58 bpm, NIBP=96/48 mmhg, SpO2=96.0 %, Resp=15 B/min, Pain=0, Gary=10, Guzman=2 11:33:50 Wire removed 11:34:20 Wire removed 11:34:21 A WIRE, EXCHANGE 260CM 3MMJ 260CM was inserted via Radial (right). 11:34:36 Catheter was removed 11:34:38 Wire removed 11:35:03 Case End 11:35:33 Catheter was removed, temp pacer. 11:37:05 No case complications noted. 11:37:13 Sheath(s) left in place, will be removed in Holding Area 11:37:16 Sterile dressing applied to site 11:37:59 HR=64 bpm, ICPT=599/66 mmhg, SpO2=92.0 %, Resp=19 B/min, Pain=0, Gary=10, Guzman=2 11:38:34 Bedside Report will be given. 11:38:39 Implantable Device card placed in patient's chart. 11:38:43 A Left Heart Cath was performed. Assessment: Final Case, HR=59 BPM, Rhythm=Sinus, NQGM=669/66 mmhg, Chest Pain=0, Edema=None, Color=Normal, Skin = Warm, Dry 11:38:54 Right Pulses: Ra Ped=2, Femoral=2, Radial=2 Neurological: State=Alert, Ox3, FAJARDO Respiration: Resp=13 B/min, SpO2=97 %, O2=2 lpm 11:42:21 HR=58 bpm, EXJU=344/71 mmhg, Resp=14 B/min, Pain=0, Gary=10, Guzman=2 11:45:40 600 mg PLAVIX given in lab by Ancelmo Larios via Oral. 11:46:58 Vitals capture stopped. 11:58:32 Patient moved to stretcher Vitals capture started with the following parameters, Patient=Adult, Interval=5 min, Initial P ythwybu=005 mmHg, 12:01:55 Deflation Rate=5 mmHg, Cuff placed on Left Arm 12:03:16 HR=75 bpm, TIYH=302/110 mmhg, SpO2=97.0 %, Resp=25 B/min, Pain=10, Gary=10, Guzman=2 12:07:39 WHSZ=399/101 mmhg, SpO2=98.0 %, Pain=10, Gary=10, Guzman=2 12:09:10 0.4 mg NITROGLYCERIN S/L given in lab by Gallo Alvarez RN via Sublingual. Patient has been complaining of chest pain. 12 lead EKG done. 12:10:26 12:13:25 WOEW=728/90 mmhg, SpO2=95.0 %, Pain=10, Gary=10, Guzman=2 12:16:11 20 mg PEPCID given in lab by Gallo Alvarez RN in Left Antecubital via Peripheral IV. 12:17:20 2 mg MORPHINE given in lab by Nicky Deal RN in Left Antecubital via Peripheral IV. 12:18:44 QXYF=672/95 mmhg, SpO2=94.0 %, Pain=5, Gary=10, Guzman=2 12:18:59 Pt states chest pain is subsiding. 12:20:20 Vitals capture stopped. End Study - Contrast Media Used In Study Contrast Total Opened (mL) Total Used (mL) Total Wasted (mL) Omnipaque 300 180 120 End Study - Maximum Contrast Load Max Contrast Load (mL) 757.1 End Study - Radiation Exposure Fluoro Time (minutes) 10.4 End Study - Patient Disposition Complications Transferred To Interventional Outcome No Telemetry Bed successful
[2017-08-15] MEDS ORDERED: NITROGLYCERIN 400 MCG/SPRAY 4.9 GM BOTTLE SL ONE (12:05)
[2017-08-15] MEDS ORDERED: MORPHINE SULFATE 8 MG/ML INJ ONE (12:14)
[2017-08-15] MEDS ORDERED: FAMOTIDINE 20 MG/2 ML VIAL ONE (12:14)
--- NOTE | 2017-08-15 13:29 | MA ---
cc: RAFITA RUTHERFORD DATE 08/15/2017 INDICATION [id number] [place]. PROCEDURE PERFORMED 1. Fluoroscopy with interpretation 2. Left heart catheterization 3. Coronary angiography 4. Rheolytic thrombectomy of the right coronary artery 5. Percutaneous endovascular stenting with drug-eluting stent to the mid right coronary artery. 6. Temporary transvenous pacemaker placement. METHOD The risks, benefits and alternatives discussed with the patient. The patient understood and consented to the procedure. The patient brought into the catheterization lab, placed on the catheterization table. The right wrist was prepped and draped in a sterile fashion. The right wrist was anesthetized with 2% lidocaine. The right radial artery was cannulated and a 6-Croatian 7 cm sheath was placed without difficulty. 200 mcg of intra-arterial nitroglycerin, in addition to 3000 units of intravenous heparin was administered. LEFT HEART CATHETERIZATION Intraventricular hemodynamics was 121/12 mmHg. CORONARY ANGIOGRAPHY The left coronary circulation was selectively engaged with a 6-Croatian JL-3.5 catheter. Right coronary circulation was selectively engaged with a 6-Croatian JR-5 catheter. CORONARY ANATOMY 1. Left main coronary is angiographically normal. 2. Left anterior descending coronary has mild luminal irregularities proximally, but in the mid segment has 75% stenosis prior to the bifurcation of a diagonal branch. 3. Circumflex gives rise to an obtuse marginal branch angiographically normal. 4. Right coronary artery is occluded in the mid segment with heavy thrombus present. TEMPORARY TRANSVENOUS PACEMAKER PLACEMENT A 6-Croatian 11 cm sheath was placed in the right femoral vein. A 5-Croatian balloon-tipped catheter was advanced to the right ventricular apex and pacing capture set. Pacing was utilized through the intervention. PERCUTANEOUS INTERVENTION The right coronary circulation was selectively engaged with a 6-Croatian JR-5 guide catheter. A 0.014 inch, 180 cm Solarus run-through wire was then navigated down to the distal posterior descending branch without difficulty. A 4-Croatian spiral flex AngioJet catheter was then advanced to the mid-right coronary and Rheolytic thrombectomy performed on three sequential passes. Temporary transvenous pacemaker was activated due to bradycardia. Repeat angiography still showed residual stenosis. A 2.0 x 15 mm balloon was deployed on several places in the mid-right coronary artery with suboptimal result. A 2.5 x 38 mm [place] [employer] drug-eluting stent was advanced down to the mid-right coronary and deployed. Repeat angiography showed SWATHI-2 flow likely due to some distal embolization, although there was a significant step-down at the distal margin. Nitroglycerin, addition to adenosine, was administered with not much improvement. We decided to stent the distal margin for concern of a small dissection flap. A 2.5 x 16 mm drug-eluting stent was advanced down to the distal stent margin with minimal stent overlap and deployed. Repeat angiography showed no residual stenosis, SWATHI-III flow. The wire was removed. Guide catheter removed, HemoBand applied. The patient tolerated the procedure well without any procedural complications. CONCLUSIONS 1. Severe two-vessel coronary artery disease with the culprit vessel involving a heavily thrombotic right coronary Occlusion. 2. Successful rheolytic thrombectomy and endovascular stenting With a drug-eluting stent of the occlusion of the right coronary artery. 3. Successful utilization and temporary transvenous pacemaker. PLAN The patient will be monitored closely for any postprocedure complication. We will continue with aggressive medical therapy. We will discuss potential staged intervention either this hospitalization or as an outpatient of the left anterior descending coronary artery. It depends on how she recovers. We will add a statin in addition to long-acting nitrates. We will use gentle hydration, obtain a 2-D echocardiogram to minimize contrast exposure. MD YVES Schaefer/HEATHER /11:42 AM /1:07 PM
--- NOTE | 2017-08-15 14:05 | EKG ---
Date Performed: 08/14/2017 Time Performed: 18:04:25 PTAGE: 62 years EKG: Sinus rhythm POSSIBLE RIGHT ATRIAL ENLARGEMENT MARKED LEFT AXIS DEVIATION POSSIBLE ANTERIOR MYOCARDIAL INFARCTION MODERATE T-WAVE ABNORMALITY, CONSIDER LATERAL ISCHEMIA Possible acute ST segment elevation infarctio n of the inferior wall. ABNORMAL ECG PREVIOUS TRACING : 10/17/2009 12.54 Since the prior tracing, the inferior ST elevation and the reciprocal change in leads V1 and aVL is new. Acute inferior wall infarction should be excluded clin ically. DOCTOR: Chio Jc Interpretating Date/Time 08/15/2017 14:04:28
--- NOTE | 2017-08-15 14:07 | EKG ---
Date Performed: 08/14/2017 Time Performed: 19:42:36 PTAGE: 62 years EKG: Sinus rhythm MARKED LEFT AXIS DEVIATION POSSIBLE ANTERIOR MYOCARDIAL INFARCTION MODERATE T-WAVE ABNORMALITY, CONS IDER LATERAL ISCHEMIA ABNORMAL ECG PREVIOUS TRACING 08/14/17 Tracing remains consistent with an inferior wall myocardial infarcti on of indeterminate age. The EKG is not diagnostic because of the left anterior fascicular block. Cli nical correlation remains important. The EKG is unchanged from the most recent tracing. DOCTOR: Chio Jc Interpretating Date/Time 08/15/2017 14:05:37
--- NOTE | 2017-08-15 14:09 | EKG ---
Date Performed: 08/15/2017 Time Performed: 01:41:13 PTAGE: 62 years EKG: Sinus rhythm MARKED LEFT AXIS DEVIATION POSSIBLE ANTERIOR MYOCARDIAL INFARCTION MODERATE T-WAVE ABNORMALITY, CONS IDER LATERAL ISCHEMIA MODERATE T-WAVE ABNORMALITY, CONSIDER INFERIOR ISCHEMIA ABNORMAL ECG PREVIOUS TRACING 08/14/17 Left anterior fascicular block. Since the prior tracing, there has b een resolution of the inferior ST elevation and improvement in the lateral ST-T wave changes. Clinica l correlation remains important to assess the serial changes. DOCTOR: Chio Jc Interpretating Date/Time 08/15/2017 14:07:37
[2017-08-15 14:37] LABS: APTT (PATIENT) 57.4 SEC (24.3-30.1)
[2017-08-15] MEDS ORDERED: BIVALIRUDIN INJ 250 MG in SODIUM CHLORIDE 0.9% INJ 50 ML IV SCH (15:00)
--- NOTE | 2017-08-15 16:37 | ECHRPT ---
Indication: cp CONCLUSIONS Technically difficult study. The left ventricular systolic function is moderately reduced with an estimated ejection fraction in the range of 40-45%. Normal left ventricular size. Mild concentric left ventricular hypertrophy. Mild mitral valve regurgitation. There is mild tricuspid valve regurgitation. BP: / HR: Rhythm: MEASUREMENTS (Male / Female) Normal Values Technical Quality:Technically difficult study 2D ECHO LV Diastolic Diameter PLAX 4.6 cm 4.2 - 5.9 / 3.9 - 5.3 cm LV Systolic Diameter PLAX 3.8 cm IVS Diastolic Thickness 1.5 cm 0.6 - 1.0 / 0.6 - 0.9 cm LVPW Diastolic Thickness 2.0 cm 0.6 - 1.0 / 0.6 - 0.9 cm LV Relative Wall Thickness 0.8 RV Internal Dim ED PLAX 3.0 cm M-MODE Aortic Root Diameter MM 3.5 cm LA Systolic Diameter MM 4.3 cm LA Ao Ratio MM 1.2 AV Cusp Separation MM 1.9 cm DOPPLER Mitral E Point Velocity 68.1 cm/s Mitral A Point Velocity 107.0 cm/s Mitral E to A Ratio 0.6 LV E' Lateral Velocity 13.1 cm/s Mitral E to LV E' Lateral Ratio 5.2 LV E' Septal Velocity 6.8 cm/s Mitral E to LV E' Septal Ratio 10.0 FINDINGS LEFT VENTRICLE The left ventricular systolic function is moderately reduced with an estimated ejection fraction in the range of 40-45%. Normal left ventricular size. Mild concentric left ventricular hypertrophy. RIGHT VENTRICLE Normal right ventricular size and systolic function. LEFT ATRIUM The left atrial size is normal. RIGHT ATRIUM The right atrial size is normal. ATRIAL SEPTUM Normal atrial septal thickness without atrial level shunting by limited color doppler interrogation. AORTA The aortic root and proximal ascending aorta are normal in size on limited imaging. MITRAL VALVE Structurally normal mitral valve. Mild mitral valve regurgitation. AORTIC VALVE Trileaflet aortic valve. No aortic valve stenosis or regurgitation. TRICUSPID VALVE Structurally normal tricuspid valve. There is mild tricuspid valve regurgitation. PULMONARY VALVE The pulmonary valve is not well visualized. VESSELS The inferior vena cava is normal in size. PERICARDIUM No pericardial effusion. Ancelmo Larios MD, FACC (Electronically Signed) Final Date:15 August 2017 16:36
--- NOTE | 2017-08-15 18:40 | HHI.PR ---
Subjective Remarks Patient resting in bed with multiple family members at bed side reports feeling well, no further chest pain Objective Vitals Vital Signs Date Time Temp Pulse Resp B/P (MAP) Pulse Ox O2 Delivery O2 Flow Rate FiO2 08/15/17 17:00 60 08/15/17 16:15 98 Nasal Cannula 2.00 08/15/17 16:00 98.9 67 17 138/82 (100) 99 08/15/17 16:00 70 08/15/17 15:00 68 08/15/17 08:28 97.9 69 17 152/81 (104) 98 08/15/17 08:00 69 17 152/81 (104) 98 08/15/17 07:30 63 08/15/17 06:57 08/15/17 05:00 54 17 135/60 (85) 99 2.00 08/15/17 04:30 100 Nasal Cannula 3.00 08/15/17 02:19 51 17 129/66 (87) 95 Room Air 08/15/17 00:04 70 16 169/70 (103) 96 Room Air 08/14/17 18:51 143/75 (97) 08/14/17 18:51 99 Room Air 08/14/17 18:51 99 Room Air 08/14/17 18:50 142/80 (100) Result Diagram: 08/14/17200608/14/172052 Other Results Laboratory Tests Test 08/14/17 18:00 08/14/17 20:07 08/14/17 20:20 08/14/17 20:53 White Blood Count 11.2 TH/MM3 12.6 TH/MM3 Red Blood Count 5.96 MIL/MM3 5.06 MIL/MM3 Hemoglobin 15.2 GM/DL 12.7 GM/DL Hematocrit 47.0 % 40.9 % Mean Corpuscular Volume 78.8 FL 80.9 FL Mean Corpuscular Hemoglobin 25.5 PG 25.2 PG Mean Corpuscular Hemoglobin Concent 32.4 % 31.1 % Red Cell Distribution Width 16.3 % 16.7 % Platelet Count 321 TH/MM3 284 TH/MM3 Mean Platelet Volume 9.9 FL 9.8 FL Neutrophils (%) (Auto) 66.8 % Lymphocytes (%) (Auto) 22.3 % Monocytes (%) (Auto) 6.8 % Eosinophils (%) (Auto) 2.9 % Basophils (%) (Auto) 1.2 % Neutrophils # (Auto) 7.5 TH/MM3 Lymphocytes # (Auto) 2.5 TH/MM3 Monocytes # (Auto) 0.8 TH/MM3 Eosinophils # (Auto) 0.3 TH/MM3 Basophils # (Auto) 0.1 TH/MM3 CBC Comment DIFF FINAL Differential Comment Prothrombin Time 10.7 SEC Prothromb Time International Ratio 1.0 RATIO Activated Partial Thromboplast Time 21.6 SEC Total Creatine Kinase 63 U/L 47 U/L Troponin I LESS THAN 0.02 NG/ML LESS THAN 0.02 NG/ML Blood Urea Nitrogen 7 MG/DL Creatinine 0.76 MG/DL Random Glucose 235 MG/DL Total Protein 8.1 GM/DL Albumin 3.9 GM/DL Calcium Level 9.4 MG/DL Magnesium Level 1.8 MG/DL Alkaline Phosphatase 109 U/L Aspartate Amino Transf (AST/SGOT) 10 U/L Alanine Aminotransferase (ALT/SGPT) 14 U/L Total Bilirubin 0.3 MG/DL Sodium Level 137 MEQ/L Potassium Level 3.7 MEQ/L Chloride Level 102 MEQ/L Carbon Dioxide Level 27.1 MEQ/L Anion Gap 8 MEQ/L Estimat Glomerular Filtration Rate 93 ML/MIN Test 08/15/17 00:00 08/15/17 03:40 08/15/17 13:17 Total Creatine Kinase 67 U/L Troponin I 0.21 NG/ML Prothrombin Time 11.8 SEC Prothromb Time International Ratio 1.1 RATIO Activated Partial Thromboplast Time 34.0 SEC 57.4 SEC Imaging Last 24 hours Impressions Chest X-Ray 08/14/17 [id number] Signed Impressions: Service Date/Time: Monday, August 14, 2017 17:58 - CONCLUSION: 1. No acute intrathoracic disease. 2. Compensated cardiomegaly. Israel Arshad MD Objective Remarks General: 62 year old female in no acute distress Cardiac: regular rate and rhythm Respiratory: clear extremities: trace bilateral edema GI: abd soft, non distended and nontender Procedures Cardiac cath 08/15/[address] Larios 1. Severe two-vessel coronary artery disease with the culprit vessel involving a heavily thrombotic right coronary Occlusion. 2. Successful rheolytic thrombectomy and endovascular stenting With a drug-eluting stent of the occlusion of the right coronary artery. 3. Successful utilization and temporary transvenous pacemaker. A/P Problem List: (1) Chest pain ICD Codes: R07.9 - Chest pain, unspecified Status: Acute Plan: -ekg changes elevated troponin consistent with ischemia -heparin drip ntg -s/p cardiac catheterization 08/15/17 with Minor: 1. Severe two-vessel coronary artery disease with the culprit vessel involving a heavily thrombotic right coronary Occlusion. 2. Successful rheolytic thrombectomy and endovascular stenting With a drug-eluting stent of the occlusion of the right coronary artery. 3. Successful utilization and temporary transvenous pacemaker -Continue Plavix, aspirin and lipitor -Lipid profile in AM -NPO after midnight plan for further intervention to LAD tomorrow (2) Hypertension ICD Codes: I10 - Essential (primary) hypertension Plan: continue home BP meds Assessment and Plan Patient examined. Assessment and plan formulated with Diana Todd PA-C. I agree with the above. Problem Qualifiers (1) Chest pain: Qualified Codes: R07.9 - Chest pain, unspecified Diana Todd Aug 15, 2017 18:40 Ramiro Zelaya DO Aug 18, 2017 01:02
--- NOTE | 2017-08-15 18:50 | EKG ---
Date Performed: 08/15/2017 Time Performed: 12:07:36 PTAGE: 62 years EKG: Sinus rhythm . Left axis deviation Inferior infarct - age undetermined Possible anteroseptal infarct - age undeter mined Lateral T wave changes may be due to myocardial ischemia Abnormal ECG PREVIOUS TRACING : 08/15/2017 01.41 Compared to previous tracing, inferior and lateral ST/T cassie nges have improved, heart rate has increased. DOCTOR: Gurvinder Casiano Interpretating Date/Time 08/15/2017 18:49:52
[2017-08-16] VITALS (18 sets, daily range): BP systolic 139–154; BP diastolic 76–87; PULSE 56–92; RESP 14–16; TEMP 98–98.5; O2SAT 93–96
[2017-08-16] MEDS: MORPHINE SULFATE 4 MG/ML INJ IV PUSH PRN ×3 (03:17→09:53)
[2017-08-16 06:26] LABS: AUTOMATED NEUTROPHIL # 6.9 TH/MM3 (1.8-7.7); BASOPHIL # 0.1 TH/MM3 (0-0.2); BASOPHIL % 0.9 % (0.0-2.0); EOSINOPHIL # 0.2 TH/MM3 (0-0.4); EOSINOPHIL % 2.3 % (0.0-4.0); HEMATOCRIT 40.7 % (35.0-46.0); HEMO FLAGS DIFF FINAL; LYMPH % 22.2 % (9.0-44.0); LYMPHOCYTE # 2.3 TH/MM3 (1.0-4.8); MEAN CELL VOLUME 77.8 FL (80.0-100.0); MEAN CORPUSCULAR HEMOGLOBIN 24.9 PG (27.0-34.0); MONO % 9.1 % (0.0-8.0); NEUT % 65.5 % (16.0-70.0); PLATELET COUNT 258 TH/MM3 (150-450); RED BLOOD COUNT 5.23 MIL/MM3 (4.00-5.30); RED CELL DISTRIBUTION WIDTH 16.4 % (11.6-17.2); WHITE BLOOD COUNT 10.5 TH/MM3 (4.0-11.0)
[2017-08-16] MEDS: METOPROLOL TARTRATE 25 MG TAB PO SCH (06:35)
[2017-08-16] MEDS ORDERED: ISOSORBIDE MONONITRATE 30 MG TAB PO SCH (07:00)
[2017-08-16 07:16] LABS: POTASSIUM 3.2 MEQ/L (3.5-5.1)
[2017-08-16 07:17] LABS: BICARBONATE 30.5 MEQ/L (21.0-32.0); HDL CHOLESTEROL 27.9 MG/DL (40.0-60.0)
[2017-08-16] MEDS ORDERED: POTASSIUM CHLORIDE 20 MEQ CONTROLLED RELEASE TAB PO ONE (07:45)
[2017-08-16] MEDS ORDERED: GLUCAGON 1 MG/ML VIAL OTHER PRN (07:45)
[2017-08-16] MEDS ORDERED: DEXTROSE 50% IN WATER 50 ML VIAL(D50) IV PUSH PRN (07:45)
[2017-08-16 07:50] LABS: CKMB 14.2 NG/ML (0.5-3.6)
--- NOTE | 2017-08-16 07:50 | PD.CARD.PN ---
Subjective Subjective Remarks still intermittent epigastric pain worse after taking her pills Objective Medications Current Medications Medications (Trade) Dose Ordered Sig/Phoebe Route Start Time Stop Time Status Last Admin (NS Flush) 2 ml UNSCH PRN IV FLUSH 08/14/17 23:45 (NS Flush) 2 ml BID IV FLUSH 08/15/17 09:00 08/15/17 21:14 (Morphine Inj) 2 mg Q3H PRN IV PUSH 08/14/17 23:45 08/16/17 06:35 (Narcan Inj) 0.4 mg UNSCH PRN IV PUSH 08/14/17 23:45 (Ale-Colace) 1 tab BID PO 08/15/17 09:00 08/15/17 08:59 (Milk Of Magnesia Liq) 30 ml Q12H PRN PO 08/14/17 23:45 (Senokot) 17.2 mg Q12H PRN PO 08/14/17 23:45 (Dulcolax Supp) 10 mg DAILY PRN RECTAL 08/14/17 23:45 (Lactulose Liq) 30 ml DAILY PRN PO 08/14/17 23:45 (Plavix) 75 mg DAILY PO 08/16/17 09:00 (Xylocaine 2% Jelly) 1 applic UNSCH X1 PRN TOP 08/15/17 11:45 08/16/17 11:44 (Aspirin Chew) 81 mg DAILY PO 08/16/17 09:00 (Diovan) 160 mg DAILY PO 08/16/17 09:00 (Lipitor) 40 mg DAILY PO 08/16/17 09:00 (Imdur) 30 mg DAILY@07 PO 08/16/17 07:00 08/16/17 06:35 (KCl) 40 meq ONCE ONCE PO 08/16/17 07:45 08/16/17 07:46 (D50w (Vial) Inj) 50 ml UNSCH PRN IV PUSH 08/16/17 07:45 (Glucagon Inj) 1 mg UNSCH PRN OTHER 08/16/17 07:45 (NovoLOG SUPPLEMENTAL SCALE) 1 ACHS SLIDING SCALE SQ 08/16/17 08:00 Vital Signs / I&O Vital Signs Date Time Temp Pulse Resp B/P (MAP) Pulse Ox O2 Delivery O2 Flow Rate FiO2 08/16/17 04:00 64 08/16/17 03:14 69 08/16/17 03:00 98.5 69 14 139/82 (101) 95 08/16/17 02:00 56 08/16/17 01:00 60 08/16/17 00:00 56 08/15/17 23:00 63 08/15/17 23:00 98.4 64 20 127/57 (80) 94 08/15/17 22:00 58 08/15/17 21:00 58 08/15/17 20:00 98.7 66 20 115/63 (80) 95 08/15/17 20:00 60 08/15/17 19:00 73 08/15/17 17:00 60 08/15/17 16:15 98 Nasal Cannula 2.00 08/15/17 16:00 98.9 67 17 138/82 (100) 99 08/15/17 16:00 70 08/15/17 15:00 68 08/15/17 08:28 97.9 69 17 152/81 (104) 98 08/15/17 08:00 69 17 152/81 (104) 98 I/O 08/15/17 08/15/17 08/15/17 08/16/17 08/16/17 08/16/17 07:00 15:00 23:00 07:00 15:00 23:00 Intake Total 480 ml 480 ml Output Total 500 ml Balance -20 ml 480 ml Intake Oral 480 ml 480 ml Output Urine Total 500 ml # Voids 1 Physical Exam GENERAL: SKIN: Warm and dry. HEAD: Normocephalic. EYES: No scleral icterus. No injection or drainage. NECK: Supple, trachea midline. No JVD or lymphadenopathy. CARDIOVASCULAR: Regular rate and rhythm without murmurs, gallops, or rubs. RESPIRATORY: Breath sounds equal bilaterally. No accessory muscle use. GASTROINTESTINAL: Abdomen soft, non-tender, nondistended. MUSCULOSKELETAL: No cyanosis, or edema. BACK: Nontender without obvious deformity. No CVA tenderness. Laboratory Laboratory Tests Test 08/15/17 13:08/16/17 05:03 Activated Partial Thromboplast Time 57.4 SEC White Blood Count 10.5 TH/MM3 Red Blood Count 5.23 MIL/MM3 Hemoglobin 13.0 GM/DL Hematocrit 40.7 % Mean Corpuscular Volume 77.8 FL Mean Corpuscular Hemoglobin 24.9 PG Mean Corpuscular Hemoglobin Concent 32.0 % Red Cell Distribution Width 16.4 % Platelet Count 258 TH/MM3 Mean Platelet Volume 9.3 FL Neutrophils (%) (Auto) 65.5 % Lymphocytes (%) (Auto) 22.2 % Monocytes (%) (Auto) 9.1 % Eosinophils (%) (Auto) 2.3 % Basophils (%) (Auto) 0.9 % Neutrophils # (Auto) 6.9 TH/MM3 Lymphocytes # (Auto) 2.3 TH/MM3 Monocytes # (Auto) 1.0 TH/MM3 Eosinophils # (Auto) 0.2 TH/MM3 Basophils # (Auto) 0.1 TH/MM3 CBC Comment DIFF FINAL Differential Comment Blood Urea Nitrogen 7 MG/DL Creatinine 0.80 MG/DL Random Glucose 213 MG/DL Calcium Level 8.5 MG/DL Sodium Level 137 MEQ/L Potassium Level 3.2 MEQ/L Chloride Level 101 MEQ/L Carbon Dioxide Level 30.5 MEQ/L Anion Gap 6 MEQ/L Estimat Glomerular Filtration Rate 88 ML/MIN Total Creatine Kinase 231 U/L Triglycerides Level 153 MG/DL Cholesterol Level 172 MG/DL LDL Cholesterol 114 MG/DL HDL Cholesterol 27.9 MG/DL Cholesterol/HDL Ratio 6.16 RATIO Assessment and Plan Assessment and Plan nstemi- RCA occluded s/p PCI. residual LAD dz. atypical residual symptoms are more probable esophageal spasm. plan for staged PCI LAD this am as scheduled to eliminate possibility of anginal equivalent. possible DC later today start PPI Ancelmo Larios MD Aug 16, 2017 07:50
[2017-08-16] MEDS ORDERED: SODIUM CHLOR 0.9% 1000 ML INJ 1,000 ML IV SCH (08:00)
[2017-08-16] MEDS ORDERED: INSULIN ASPART SUPPLEMENTAL SCALE SQ SCH (08:00)
[2017-08-16] MEDS ORDERED: HEPARIN-NS/PF INJ 1,000 ML ONE (08:08)
[2017-08-16] MEDS ORDERED: SODIUM CHLORID 0.9% 500 ML INJ 1,000 ML ONE (08:09)
[2017-08-16] MEDS ORDERED: MIDAZOLAM HCL 2 MG/2 ML VIAL ONE (08:15)
[2017-08-16] MEDS ORDERED: IOHEXOL 350 MG/ML 100 ML BTL (for Cath Lab) OTHER ONE (08:25)
[2017-08-16] MEDS ORDERED: NITROGLYCERIN-D5W 50 MG/250 ML 250 ML ONE (08:26)
[2017-08-16] MEDS ORDERED: HEPARIN SODIUM - IV 10,000 UNITS/10 ML VIAL ONE (08:26)
[2017-08-16] MEDS ORDERED: STERILE WATER FOR INJECTION 10 ML VIAL ONE (08:36)
[2017-08-16] MEDS ORDERED: BIVALIRUDIN 250 MG VIAL ONE (08:36)
[2017-08-16] MEDS ORDERED: PANTOPRAZOLE SOD 40 MG DELAYED RELEASE TAB PO SCH (08:45)
[2017-08-16] MEDS ORDERED: CLOPIDOGREL 75 MG TAB PO SCH (09:00)
[2017-08-16] MEDS ORDERED: ATORVASTATIN 40 MG TAB PO SCH (09:00)
[2017-08-16] MEDS ORDERED: ASPIRIN 81 MG CHEW TAB PO SCH (09:00)
[2017-08-16] MEDS ORDERED: VALSARTAN 160 MG TAB PO SCH (09:00)
--- NOTE | 2017-08-16 09:01 | CATHPROC ---
Vee[facility] HIS Report Study Information Study Number Admission Scheduled Start Study Start [id number] Aug 14 2017 10:30PM 08/16/2017 Aug 16 2017 8:00AM [place] Service Cardiac Catheterization Admit Source Facility Department Emergency department [facility] Att[facility] Physician and Clinical Staff Initial Ancelmo Haji Rate Clerk Passenger Heike Feliciano RN Recorder Kalee Lentz,RT(R) Scrub Dariel Neff RCIS(BS) Procedures Performed Procedure Location (Site) Vessel Name Coronary Angiograms LCA Left Coronary Coronary Angiograms RCA Right Coronary Drug Eluting Inflatio LAD Mid Left Coronary L Heart Cath Wire insertion Radial (right) Radial Art. Equipment Time Cement Cutter Description Size Mfg Part Number Used/Scraped TRANSDUCER, TRUWAVE [id number] 08:12 Light [employer] Optics * Used W/STOCKCOCK *[id number] [id number] *[id number] *[id number] *[id number] 08:12 Cel[employer]Fi [employer] PACK, CCL CUSTOM * Used *[id number] 08:12 [employer] SUPPORT, ARTERIAL ADULT [id number] *[id number] Used [id number] 08:12 GenSpera PACER PEN, SKIN DUAL W/ RULER * Used *[id number] 08:43 MEDTRONIC STENT, 3.0 18MM MICKY 3.0 18MM Used *[id number] 08:45 [employer] 30 BLOSSOM INDEFLATOR Used *[id number] BAND, RADIAL COMPRESSION TR [id number] 08:49 [employer] MEDICAL 24CM Used SHORT 24 *[id number] SHEATH, FR6 RADIAL PRELUDE 08:12 [employer] FR 6 [id number] Used EASE 11CM [id number] 08:12 [employer] WIRE, EXCHANGE 260CM 3MMJ 260CM Used *[id number] 08:12 NYCOMED OMNIPAQUE, 350 MG, 150ML 150ML [id number] Used [id number] 08:12 ROWE [employer] BLANKET,WARM AIR CCL * Used *[id number] WIRE, RUNTHROUGH NS FLOPPY [id number] 08:20 [employer] MEDICAL 180CM Used .014 180CM *[id number] Equipment Model, Serial, Lot Number and Expiration Data Description Model Number Serial Number Lot Number Expiration Date STENT, 3.0 18MM MICKY [id number] 06-19-2019 History: Current Medications Medication Dosage/Unit Route Frequency Last Date/Time Taken ASA PLAVIX Imdur DIOVAN LIPITOR LOPRESSOR History: Allergies Allergy Reaction hydromorphone Itching penicillin G History: Risk Factors Family History of Hypertension Dyslipidemia Previous OH Previous Heart Failure Premature CAD Yes Yes No No No Prior Valve Prior PCI Prior PCIDate Prior CABG Surgery No Yes 08/15/2017 No Cerebrovascular Peripheral Artery Chronic Lung On Dialysis Diabetes Diabetes Therapy Disease Disease Disease No No No No Yes Diet History: Risk Factors Selection Items Current Smoker History: Symptoms/Diagnosis Selection Items Chest pain History: Stress Tests Stress or Imaging Studies Performed No History: Other Disease Selection Items HTN History: Other Current Smoker Method Quit Packs a Day Years Used Pack Years Yes Cigarettes 10 Years Ago 1 5 5 Labs Hgb (g/dl) Hct (%) WBC (l/cumm) Platelets (thousands) 11.60-17.00 35.00-51.00 4.00-11.00 150.00-450.00 13.0 40.7 10.5 258 Glucose (mg/dl) BUN (mg/dl) Creatinine (mg/dl) BUN:Creatinine (1:x) 74.00-106.00 7.00-18.00 0.50-1.30 10.00-20.00 213 7 0.8 8.8 Na (meq/l) K (meq/l) 136.00-145.00 3.50-5.10 137 3.2 INR (PTT:PT) 0.90-1.10 1.1 Troponin I (ng/ml) CPK (u/l) CPK-MB (ng/ML) 0.02-0.05 26.00-308.00 0.50-3.60 5.5 67 6.1 Medication Medication Total Dose (Bolus/Oral) Medication Total Dosage/Unit 1% XYLOCAINE 20 mL ANGIOMAX BOLUS 16 mL FENTANYL 50 mcg HEPARIN 3000 units RADIAL COCKTAIL 5 mL (Bolus) VERSED 2 mg Medications (Bolus/Oral) Medication Time Given Dosage/Unit Administered By Reason VERSED 08/16/2017 8:21:30 AM 2 mg Heike Feliciano 2 mg VERSED given in lab by Heike Feliciano RN in Left Forearm via Peripheral IV. Ordered by James Larios. FENTANYL 08/16/2017 8:22:00 AM 50 mcg Heike Feliciano 50 mcg FENTANYL given in lab by Heike Feliciano RN in Left Forearm via Peripheral IV. Ordered by Ancelmo Beckett. 1% XYLOCAINE 08/16/2017 8:25:37 AM 20 mL Ancelmo Larios 20 mL 1% XYLOCAINE given in lab by Ancelmo Larios in Right Radial via Subcutaneous. Ordered by Ancelmo Larios. RADIAL COCKTAIL 08/16/2017 8:28:15 AM 5 mL (Bolus) Ancelmo Larios 5 mL (Bolus) RADIAL COCKTAIL given in lab by Ancelmo Larios in Right Radial via Radial. Using [Soluti on Name]. Ordered by Ancelmo Larios. HEPARIN 08/16/2017 8:28:31 AM 3000 units Heike Feliciano 3000 units HEPARIN given in lab by Heike Feliciano RN in Left Forearm via Peripheral IV. Ordered by Ancelmo Obrien. ANGIOMAX BOLUS 08/16/2017 8:39:00 AM 16 mL Heike Feliciano 16 mL ANGIOMAX BOLUS given in lab by Heike Feliciano RN in Left Forearm via Peripheral IV. Ordered by Ancelmo Larios. Medication (Drip) Medication Time Given Dosage/Unit Concentration/Unit Diluent (ml) Solution ANGIOMAX DRIP 08/16/2017 8:40:56 AM 1.747 mg/kg/hr 250 mg 50 NaCl .9 1.747 mg/kg/hr ANGIOMAX DRIP given in lab by Heike Feliciano RN in Left Forearm via Peripheral IV. Pu mp/Drip Flow = 37 ml/hr using NaCl .9 with a concentration of 250 mg in 50 ml. Ordered by Ancelmo Larios. Initial Case Assessment Cardiovascular Chest Pain 4 Neurological State Oriented to time-place- Alert Moves all extremities person Chronological Log Time Study Chronological Log 8:03:53 Patient arrived via Bed. 8:03:54 Patient Name, D.O.B, / Armband Verified By R.N. 8:03:58 Consent signed by the physician and the patient and verified by the [facility] Att[facility] staff. 8:03:59 Pre-op and post- op instructions given; patient acknowledges understanding of instructions. 8:04:00 Verbal Stimulation=2 Physical Stimulation=2 Airway=2 Respiration=2 TOTAL=8. (0=absent, 1=ch ited, 2=present) 8:04:06 Patient has been NPO for More than 6Hrs. 8:04:06 Skin Breakdown- 8:04:11 Patient Warmer Placed on the Table. 8:04:12 Alban Prominences Protected 8:04:14 A # 20 IV was noted in the Forearm (left). Grade = 0 8:04:14 A # 20 IV was noted in the Hand (right). Grade = 0 8:04:20 History and physical on the chart or being dictated. Assessment: Initial Case, Chest Pain=4 8:04:23 Neurological: State=Alert, Ox3, FAJARDO 8:05:00 Allens test performed on the right radial and ulnar artery. Vitals capture started with the following parameters, Patient=Adult, Interval=5 min, Initial Pre zkfat=974 mmHg, 8:09:38 Deflation Rate=5 mmHg, Cuff placed on Left Arm 8:10:22 HR=61 bpm, UNES=802/75 mmhg, NiT8=460.0 %, Resp=19 B/min 8:12:35 Reference ECG taken 8:15:21 HR=58 bpm, LMFM=452/80 mmhg, SpO2=95.0 %, Resp=13 B/min 8:20:00 MD arrived. 8:20:24 HR=62 bpm, TKHD=635/74 mmhg, SpO2=94.0 %, Resp=11 B/min Time Out. Correct patient, correct procedure, correct physician, power injector loaded, or not l oaded with contrast with 8:21:24 surgical team present. Time Out Concurred by MD and individual staff in procedure. 8:21:30 2 mg VERSED given in lab by Heike Feliciano, ISIS in Left Forearm via Peripheral IV. Ordered by Ancelmo Larios. 8:22:00 50 mcg FENTANYL given in lab by Heike Feliciano, ISIS in Left Forearm via Peripheral IV. Ordere d by Ancelmo Larios. 8:25:23 HR=68 bpm, CJRO=543/72 mmhg, SpO2=95 %, Resp=16 B/min 8:25:35 Case Start 8:25:37 20 mL 1% XYLOCAINE given in lab by Ancelmo Larios in Right Radial via Subcutaneous. Ordered by Ancelmo Larios. 8:27:46 Access site was Right Radial Artery. A SHEATH, FR6 RADIAL PRELUDE EASE 11CM FR 6 was advanced into the Radial (right) using the Percu bernard 8:27:55 technique. 5 mL (Bolus) RADIAL COCKTAIL given in lab by Ancelmo Larios in Right Radial via Radial. Using [S olution Name]. 8:28:15 Ordered by Ancelmo Larios. 8:28:31 3000 units HEPARIN given in lab by Heike Feliciano RN in Left Forearm via Peripheral IV. Ord ered by Ancelmo Larios. A JR 5.0 INFINITI CATHETER FR 6 was advanced over a wire. OMNIPAQUE, 350 MG, 150ML 150ML was use d for 8:29:42 injections. 8:30:24 HR=65 bpm, LZMS=822/66 mmhg, SpO2=94 %, Resp=13 B/min 8:31:23 Pressure channel 1 zeroed. Recorded Pressure: Ao, HR=65, Condition=Condition 1 8:31:51 (Aorta) Ao 154/78/107 8:32:16 The RCA was injected and visualized at various angles. OMNIPAQUE, 350 MG, 150ML 150ML used. 8:35:16 Catheter was removed 8:35:21 HR=67 bpm, OVMI=152/65 mmhg, SpO2=95.0 %, Resp=16 B/min A AL 1.5 GUIDE CATHETER FR 6 was advanced over a wire. OMNIPAQUE, 350 MG, 150ML 150ML was used f or 8:35:33 injections. 8:38:26 Catheter was removed 8:38:28 A AL 3 GUIDE CATHETER FR 6 was advanced over a wire. OMNIPAQUE, 350 MG, 150ML 150ML was used for injections. 16 mL ANGIOMAX BOLUS given in lab by Heike Feliciano RN in Left Forearm via Peripheral IV. Order ed by Ric, 8:39:00 Ancemlo. 8:40:20 HR=75 bpm, VRYI=800/63 mmhg, SpO2=96.0 %, Resp=12 B/min 1.747 mg/kg/hr ANGIOMAX DRIP given in lab by Heike Feliciano, ISIS in Left Forearm via Peripheral IV. Pump/Drip Flow 8:40:56 = 37 ml/hr using NaCl .9 with a concentration of 250 mg in 50 ml. Ordered by Ancelmo Larios. 8:41:00 The LCA was injected and visualized at various angles. OMNIPAQUE, 350 MG, 150ML 150ML use d. 8:43:12 A WIRE, RUNTHROUGH NS FLOPPY .014 180CM 180CM was inserted via Radial (right). 8:43:43 Interventional wire has crossed the lesion A STENT, 3.0 18MM MICKY 3.0 18MM was advanced through a AL 3 GUIDE CATHETER FR 6 over a WIRE, R UNTHROUGH 8:44:16 NS FLOPPY .014 180CM 180CM. A STENT, 3.0 18MM MICKY 3.0 18MM was deployed using a 30 BLOSSOM INDEFLATOR at 12 atmospheres for 1 0 seconds in 8:45:14 the LAD Mid. 8:46:04 HR=73 bpm, YRUT=880/60 mmhg, SpO2=97.0 %, Resp=11 B/min 8:46:31 Stent deployed. Delivery device removed 8:47:16 Wire removed 8:47:18 Catheter was removed 8:47:37 Case End 8:51:01 HR=69 bpm, HQKD=075/87 mmhg, SpO2=98.0 %, Resp=12 B/min Radial Compression Device Used. 16 mLs of air placed in BAND, RADIAL COMPRESSION TR SHORT 24 2 4CM. Affected 8:54:01 hand 98 % O2 saturation. 8:54:17 No case complications noted. 8:54:20 Cine recording checked. 8:54:22 Bedside Report will be given. 8:54:24 Implantable Device card placed in patient's chart. 8:54:31 Report called to floor. 8:54:33 A Left Heart Cath was performed. 8:54:34 Patient moved to stretcher 8:55:25 HR=62 bpm, BRKV=323/79 mmhg, SpO2=98.0 %, Resp=14 B/min, Pain=0 9:00:08 Vitals capture stopped. End Study - Contrast Media Used In Study Contrast Total Opened (mL) Total Used (mL) Total Wasted (mL) Omnipaque 70 70 0 End Study - Maximum Contrast Load Max Contrast Load (mL) 661.9 End Study - Radiation Exposure Fluoro Time (minutes) 6.4 End Study - Patient Disposition Complications Transferred To Interventional Outcome No Telemetry Bed successful
--- NOTE | 2017-08-16 09:12 | MA ---
cc: RAFITA RUTHERFORD DATE 08/16/2017 INDICATION Gwt-GM-yocodggyx IA, staged procedure left anterior descending coronary artery. PROCEDURE PERFORMED 1. Coronary angiography 2. Percutaneous intervention with drug-eluting stent to the mid left anterior descending coronary artery. METHOD The risks, benefits and alternatives discussed with the patient. The patient understood and consented to the procedure. PROCEDURE The patient brought into the catheterization lab, placed on the catheterization table. THe right wrist was prepped and draped in a sterile fashion. The right wrist was anesthetized with 2% lidocaine. The right radial artery was cannulated and a 6-Maltese 7 cm sheath was placed without difficulty. Angiomax bolus followed by drip was administered and intra-arterial 200 mcg of nitroglycerin was administered. CORONARY ANGIOGRAPHY 1. Left main coronary is angiographically normal. 2. Left anterior descending coronary artery proximally has only minor luminal irregularities. The mid left anterior descending coronary has 75% stenosis. 3. Left circumflex is angiographically normal. 4. The right coronary has stents present through the entire mid to distal segment. The mid segment just distal to the bifurcation of an acute marginal branch, there is a 20% eccentric stenosis, otherwise good distal runoff. PERCUTANEOUS INTERVENTION Given the patient's continued intermittent symptoms, we elected to proceed with percutaneous intervention. The left coronary circulation was selectively engaged with a 6-Maltese AL-3 guide catheter. Angiomax was administered throughout the entire procedure to maintain appropriate anticoagulation. A 0.014 x 180 cm Jumpidoumo run-through wire was navigated down the distal left anterior descending coronary artery. A 3.0 x 18 mm RX Medtronic [place] stent was advanced into the mid left anterior descending coronary and deployed without any residual stenosis. The wire was removed. Guide catheter removed. A HemoBand applied. CONCLUSIONS Successful staged percutaneous intervention of mid left anterior descending coronary with drug-eluting stent. PLAN The patient will be monitored closely for any post procedural complications. We will continue aggressive medical therapy. If she has a residuals symptoms, she will need an upper endoscopy as an outpatient. Anticipate discharge later today. MD YVES Schaefer/HEATHER /8:53 AM /8:58 AM
--- NOTE | 2017-08-16 09:44 | HHI.PR ---
Subjective Remarks Patient seen S/P cardiac catheter reports no further chest pain reports feeling well overall Objective Vitals Vital Signs Date Time Temp Pulse Resp B/P (MAP) Pulse Ox O2 Delivery O2 Flow Rate FiO2 08/16/17 06:00 70 08/16/17 05:00 76 08/16/17 04:00 64 08/16/17 03:14 69 08/16/17 03:00 98.5 69 14 139/82 (101) 95 08/16/17 02:00 56 08/16/17 01:00 60 08/16/17 00:00 56 08/15/17 23:00 63 08/15/17 23:00 98.4 64 20 127/57 (80) 94 08/15/17 22:00 58 08/15/17 21:00 58 08/15/17 20:00 98.7 66 20 115/63 (80) 95 08/15/17 20:00 60 08/15/17 19:00 73 08/15/17 17:00 60 08/15/17 16:15 98 Nasal Cannula 2.00 08/15/17 16:00 98.9 67 17 138/82 (100) 99 08/15/17 16:00 70 08/15/17 15:00 68 Result Diagram: 08/16/17 0503 08/16/17 0503 Other Results Laboratory Tests Test 08/14/17 18:00 08/14/17 20:07 08/14/17 20:20 08/14/17 20:53 White Blood Count 11.2 TH/MM3 12.6 TH/MM3 Red Blood Count 5.96 MIL/MM3 5.06 MIL/MM3 Hemoglobin 15.2 GM/DL 12.7 GM/DL Hematocrit 47.0 % 40.9 % Mean Corpuscular Volume 78.8 FL 80.9 FL Mean Corpuscular Hemoglobin 25.5 PG 25.2 PG Mean Corpuscular Hemoglobin Concent 32.4 % 31.1 % Red Cell Distribution Width 16.3 % 16.7 % Platelet Count 321 TH/MM3 284 TH/MM3 Mean Platelet Volume 9.9 FL 9.8 FL Neutrophils (%) (Auto) 66.8 % Lymphocytes (%) (Auto) 22.3 % Monocytes (%) (Auto) 6.8 % Eosinophils (%) (Auto) 2.9 % Basophils (%) (Auto) 1.2 % Neutrophils # (Auto) 7.5 TH/MM3 Lymphocytes # (Auto) 2.5 TH/MM3 Monocytes # (Auto) 0.8 TH/MM3 Eosinophils # (Auto) 0.3 TH/MM3 Basophils # (Auto) 0.1 TH/MM3 CBC Comment DIFF FINAL Differential Comment Prothrombin Time 10.7 SEC Prothromb Time International Ratio 1.0 RATIO Activated Partial Thromboplast Time 21.6 SEC Total Creatine Kinase 63 U/L 47 U/L Troponin I LESS THAN 0.02 NG/ML LESS THAN 0.02 NG/ML Blood Urea Nitrogen 7 MG/DL Creatinine 0.76 MG/DL Random Glucose 235 MG/DL Total Protein 8.1 GM/DL Albumin 3.9 GM/DL Calcium Level 9.4 MG/DL Magnesium Level 1.8 MG/DL Alkaline Phosphatase 109 U/L Aspartate Amino Transf (AST/SGOT) 10 U/L Alanine Aminotransferase (ALT/SGPT) 14 U/L Total Bilirubin 0.3 MG/DL Sodium Level 137 MEQ/L Potassium Level 3.7 MEQ/L Chloride Level 102 MEQ/L Carbon Dioxide Level 27.1 MEQ/L Anion Gap 8 MEQ/L Estimat Glomerular Filtration Rate 93 ML/MIN Test 08/15/17 00:00 08/15/17 03:40 08/15/17 13:17 08/16/17 05:03 Total Creatine Kinase 67 U/L 231 U/L Troponin I 0.21 NG/ML 5.56 NG/ML Prothrombin Time 11.8 SEC Prothromb Time International Ratio 1.1 RATIO Activated Partial Thromboplast Time 34.0 SEC 57.4 SEC White Blood Count 10.5 TH/MM3 Red Blood Count 5.23 MIL/MM3 Hemoglobin 13.0 GM/DL Hematocrit 40.7 % Mean Corpuscular Volume 77.8 FL Mean Corpuscular Hemoglobin 24.9 PG Mean Corpuscular Hemoglobin Concent 32.0 % Red Cell Distribution Width 16.4 % Platelet Count 258 TH/MM3 Mean Platelet Volume 9.3 FL Neutrophils (%) (Auto) 65.5 % Lymphocytes (%) (Auto) 22.2 % Monocytes (%) (Auto) 9.1 % Eosinophils (%) (Auto) 2.3 % Basophils (%) (Auto) 0.9 % Neutrophils # (Auto) 6.9 TH/MM3 Lymphocytes # (Auto) 2.3 TH/MM3 Monocytes # (Auto) 1.0 TH/MM3 Eosinophils # (Auto) 0.2 TH/MM3 Basophils # (Auto) 0.1 TH/MM3 CBC Comment DIFF FINAL Differential Comment Blood Urea Nitrogen 7 MG/DL Creatinine 0.80 MG/DL Random Glucose 213 MG/DL Calcium Level 8.5 MG/DL Sodium Level 137 MEQ/L Potassium Level 3.2 MEQ/L Chloride Level 101 MEQ/L Carbon Dioxide Level 30.5 MEQ/L Anion Gap 6 MEQ/L Estimat Glomerular Filtration Rate 88 ML/MIN Creatine Kinase MB 14.2 NG/ML Creatine Kinase MB % 6.1 % Triglycerides Level 153 MG/DL Cholesterol Level 172 MG/DL LDL Cholesterol 114 MG/DL HDL Cholesterol 27.9 MG/DL Cholesterol/HDL Ratio 6.16 RATIO Imaging Last 24 hours Impressions Chest X-Ray 08/14/17 1748 Signed Impressions: Service Date/Time: Monday, August 14, 2017 17:58 - CONCLUSION: 1. No acute intrathoracic disease. 2. Compensated cardiomegaly. Israel Arshad MD Objective Remarks General: 62 year old female in no acute distress Cardiac: regular rate and rhythm Respiratory: clear extremities: trace bilateral edema GI: abd soft, non distended and nontender Procedures Cardiac cath 08/15/[address] Larios 1. Severe two-vessel coronary artery disease with the culprit vessel involving a heavily thrombotic right coronary Occlusion. 2. Successful rheolytic thrombectomy and endovascular stenting With a drug-eluting stent of the occlusion of the right coronary artery. 3. Successful utilization and temporary transvenous pacemaker. Cardiac cath 08/16/[address] Larios Successful staged percutaneous intervention of mid left anterior descending coronary with drug-eluting stent. A/P Problem List: (1) Chest pain ICD Codes: R07.9 - Chest pain, unspecified Status: Acute Plan: -ekg changes elevated troponin consistent with ischemia -heparin drip ntg -s/p cardiac catheterization 08/15/[address] Larios: 1. Severe two-vessel coronary artery disease with the culprit vessel involving a heavily thrombotic right coronary Occlusion. 2. Successful rheolytic thrombectomy and endovascular stenting With a drug-eluting stent of the occlusion of the right coronary artery. 3. Successful utilization and temporary transvenous pacemaker s/p Cardiac cath 08/16/[address] Larios Successful staged percutaneous intervention of mid left anterior descending coronary with drug-eluting stent. -Continue Plavix, aspirin and lipitor -Lipid profile reviewed ASCVD risk 24.6% patient on high dose statin will continue at DC Hyperglycemia blood glucose 213 on BMP this AM HA1c ordered accu checks ACHS ordered monitor trend hypokalemia replaced DVT prophylaxis with SCDs plan to DC later today or tomorrow (2) Hypertension ICD Codes: I10 - Essential (primary) hypertension Plan: continue home BP meds Assessment and Plan Patient examined. Assessment and plan formulated with Diana Todd PA-C. I agree with the above. Problem Qualifiers (1) Chest pain: Qualified Codes: R07.9 - Chest pain, unspecified Diana Todd Aug 16, 2017 09:44 Ramiro Zelaya DO Aug 18, 2017 01:03
[2017-08-16] MEDS: DOCUSATE SODIUM 50 MG/SENNA 8.6 MG TAB PO SCH (09:53)
[2017-08-16] MEDS: SODIUM CHLORIDE 0.9% FLUSH 10 ML FLUSH IV FLUSH SCH (09:54)
[2017-08-16] MEDS ORDERED: DIOV160T6 PO (10:29)
[2017-08-16] MEDS ORDERED: PLAV75TA29 PO (10:29)
[2017-08-16] MEDS ORDERED: ATOR40TA16 PO (10:29)
[2017-08-16] MEDS ORDERED: ASPI81CH25 PO (10:29)
--- NOTE | 2017-08-16 10:36 | HHI.DCPOC ---
Discharge Care Plan Diagnosis: (1) NSTEMI (non-ST elevated myocardial infarction) (2) Hypertension Goals to Promote Your Health * To prevent worsening of your condition and complications * To maintain your health at the optimal level Directions to Meet Your Goals Take your medications as prescribed Follow your dietary instruction Follow activity as directed Keep your appointments as scheduled Take your immunizations and boosters as scheduled If your symptoms worsen call your PCP, if no PCP go to Urgent Care Center or Emergency Room Smoking is Dangerous to Your Health. Avoid second hand smoke Call the 24-hour hour crisis hotline for domestic abuse at Diana Todd Aug 16, 2017 10:36 Ramiro Zelaya DO Aug 18, 2017 01:04
--- NOTE | 2017-08-16 10:40 | HHI.DS ---
Discharge Summary Admission Date Aug 14, 2017 at 22:30 Discharge Date: Aug 16, 2017 Admitting Diagnosis Chest pain (1) Chest pain ICD Codes: R07.9 - Chest pain, unspecified Status: Acute (2) Hypertension ICD Codes: I10 - Essential (primary) hypertension Consultants Dr. Larios Procedures Cardiac cath 08/15/[address] Larios 1. Severe two-vessel coronary artery disease with the culprit vessel involving a heavily thrombotic right coronary Occlusion. 2. Successful rheolytic thrombectomy and endovascular stenting With a drug-eluting stent of the occlusion of the right coronary artery. 3. Successful utilization and temporary transvenous pacemaker. Cardiac cath 08/16/[address] Larios Successful staged percutaneous intervention of mid left anterior descending coronary with drug-eluting stent. Brief History 62yo F with HTN and borderline DM presents to the ED with c/o chest pain since 3pm today. States it is intermittent and pressure like. Chest pain radiates to jaw and head. Pt did have findings on EKG that was suspicious for ischemia and previous team ER discussed with Dr. Heredia who recommended starting heparin and NPO after midnight. Patient had Second EKG unchanged from first. Morphine 2mg IV was given and Chest pain improved after morphine. No adverse reaction. Labs reviewed, glucose elevated at 235. Normal CO2. No increased anion gap. Troponin negative CBC/BMP: 08/16/17 0503 08/16/17 0503 Significant Findings Laboratory Tests Test 08/14/17 18:00 08/14/17 20:07 08/14/17 20:20 08/14/17 20:53 White Blood Count 11.2 TH/MM3 (4.0-11.0) 12.6 TH/MM3 (4.0-11.0) Red Blood Count 5.96 MIL/MM3 (4.00-5.30) Hematocrit 47.0 % (35.0-46.0) Mean Corpuscular Volume 78.8 FL (80.0-100.0) Mean Corpuscular Hemoglobin 25.5 PG (27.0-34.0) 25.2 PG (27.0-34.0) Mean Corpuscular Hemoglobin Concent 31.1 % (32.0-36.0) Activated Partial Thromboplast Time 21.6 SEC (24.3-30.1) Troponin I LESS THAN 0.02 NG/ML LESS THAN 0.02 NG/ML Random Glucose 235 MG/DL (74-106) Aspartate Amino Transf (AST/SGOT) 10 U/L (15-37) Test 08/15/17 00:00 08/15/17 03:40 08/15/17 13:17 08/16/17 05:03 Troponin I 0.21 NG/ML (0.02-0.05) 5.56 NG/ML (0.02-0.05) Prothrombin Time 11.8 SEC (9.8-11.6) Activated Partial Thromboplast Time 34.0 SEC (24.3-30.1) 57.4 SEC (24.3-30.1) Mean Corpuscular Volume 77.8 FL (80.0-100.0) Mean Corpuscular Hemoglobin 24.9 PG (27.0-34.0) Monocytes (%) (Auto) 9.1 % (0.0-8.0) Monocytes # (Auto) 1.0 TH/MM3 (0-0.9) Random Glucose 213 MG/DL (74-106) Potassium Level 3.2 MEQ/L (3.5-5.1) Estimat Glomerular Filtration Rate 88 ML/MIN (>89) Total Creatine Kinase 231 U/L (26-192) Creatine Kinase MB 14.2 NG/ML (0.5-3.6) Creatine Kinase MB % 6.1 % (0.0-4.0) Triglycerides Level 153 MG/DL (42-150) LDL Cholesterol 114 MG/DL (0-99) HDL Cholesterol 27.9 MG/DL (40.0-60.0) Imaging Last Impressions Chest X-Ray 08/14/17 8209 Signed Impressions: Service Date/Time: Monday, August 14, 2017 17:58 - CONCLUSION: 1. No acute intrathoracic disease. 2. Compensated cardiomegaly. Israel Arshad MD PE at Discharge General: 62 year old female in no acute distress Cardiac: regular rate and rhythm Respiratory: clear extremities: trace bilateral edema GI: abd soft, non distended and nontender Hospital Course Chest pain -ekg changes elevated troponin consistent with ischemia -heparin drip ntg -s/p cardiac catheterization 08/15/[address] Larios: 1. Severe two-vessel coronary artery disease with the culprit vessel involving a heavily thrombotic right coronary Occlusion. 2. Successful rheolytic thrombectomy and endovascular stenting With a drug-eluting stent of the occlusion of the right coronary artery. 3. Successful utilization and temporary transvenous pacemaker s/p Cardiac cath 08/16/[address] Larios Successful staged percutaneous intervention of mid left anterior descending coronary with drug-eluting stent. -Continue Plavix, aspirin and lipitor -Patient unable to tolerate beta rose due to bradycardia- cardiology DC'd beta rose -Lipid profile reviewed ASCVD risk 24.6% patient on high dose statin Hyperglycemia blood glucose 213 on BMP this AM HA1c ordered accu checks ACHS ordered monitor trend Patient advised to follow up with PCP regarding hyperglycemia and likely DM hypokalemia replaced DVT prophylaxis with SCDs Pt Condition on Discharge: Stable Discharge Disposition: Discharge Home Discharge Instructions DIET: Follow Instructions for: Heart Healthy Diet Activities you can perform: See Additionl Instruction Activities to Avoid: Driving for 24 hrs, Lifting/Bending, Weight Bearing, Strenuous Activity Follow up Referrals: Cardiology - [address] Larios PCP Follow-up - [address] Rimma Barone New Medications: Aspirin (Aspirin Low Strength) 81 Mg Chew 81 MG PO DAILY for blood thinner, #30 EA 0 Refills Atorvastatin (Atorvastatin) 40 Mg Tab 40 MG PO DAILY for cholesterol, #30 TAB 0 Refills Clopidogrel (Plavix) 75 Mg Tab 75 MG PO DAILY for blood thinner, #30 TAB 0 Refills Pantoprazole (Pantoprazole) 40 Mg Tab 40 MG PO DAILY for stomach acid, #30 TAB 0 Refills Valsartan (Diovan) 160 Mg Tab 160 MG PO DAILY for blood pressure, #30 TAB 0 Refills Discontinued Medications: Hydrochlorothiazide (Hydrochlorothiazide) 25 Mg Tab 25 MG PO DAILY, #30 TAB 0 Refills Valsartan (Valsartan) 320 Mg Tab 320 MG PO DAILY, #30 TAB 0 Refills Additional Information Patient examined. Assessment and plan formulated with Diana Todd PA-C. I agree with the above. Diana Todd Aug 16, 2017 10:40 Ramiro Zelaya DO Aug 18, 2017 01:04
[2017-08-16] MEDS ORDERED: PANT40TA3 PO (12:21)
[2017-08-16 12:32] LABS: P2Y12 REACTION UNITS (PRU) 222 PRU (194-418)
[2017-08-16 15:29] LABS: HEMOGLOBIN A1a 1.4 %; HEMOGLOBIN A1b 2.6 %; HEMOGLOBIN Ao 78.8 %; HEMOGLOBIN LA1C 2.7 %; HEMOGLOBIN P3 4.4 %
== END 2017-08-16 15:36 | disposition home or self-care (01) | DRG 247 ==
LOC: NEPC 17:37 → NEDA 22:30 → NEDH 08-15 02:30 → HCIS 08-15 06:49
PROVIDERS: ADMIT Hospitalist; ATTEND Hospitalist
PROC: 02C03ZZ Extirpation of Matter from Coronary Artery, One Artery, Percutaneous Approach (ICD-10-PCS; 2017-08-15)
PROC: 4A023N7 Measurement of Cardiac Sampling and Pressure, Left Heart, Percutaneous Approach (ICD-10-PCS; 2017-08-15)
PROC: B2111ZZ Fluoroscopy of Multiple Coronary Arteries using Low Osmolar Contrast (ICD-10-PCS; 2017-08-15)
PROC: 5A1223Z Performance of Cardiac Pacing, Continuous (ICD-10-PCS; 2017-08-15)
PROC: 027035Z Dilation of Coronary Artery, One Artery with Two Drug-eluting Intraluminal Devices, Percutaneous Approach (ICD-10-PCS; principal; 2017-08-15 09:30)
PROC: 027034Z Dilation of Coronary Artery, One Artery with Drug-eluting Intraluminal Device, Percutaneous Approach (ICD-10-PCS; 2017-08-16)
PROC: B2111ZZ Fluoroscopy of Multiple Coronary Arteries using Low Osmolar Contrast (ICD-10-PCS; 2017-08-16)
DX: I21.4 Non-ST elevation (NSTEMI) myocardial infarction (principal); E11.65 Type 2 diabetes mellitus with hyperglycemia; I11.9 Hypertensive heart disease without heart failure; I25.10 Atherosclerotic heart disease of native coronary artery without angina pectoris; K22.4 Dyskinesia of esophagus; E87.6 Hypokalemia; F17.200 Nicotine dependence, unspecified, uncomplicated; Z88.0 Allergy status to penicillin; Z88.5 Allergy status to narcotic agent
CPT/HCPCS: 33210; 71010; 80048; 80053; 80061; 82550; 82552; 82948; 83036; 83735; 84484; 85025; 85027; 85576; 85610; 85730; 92928; 92973; 93005; 93306; 93454; 96365; 96375; C1725; C1757; C1769; C1874; C1887; C1893; J0153; J0583; J1644; J1815; J2250; J2270; J2405; J3010; J7040; Q9967